=== PATIENT | female | born 1940 | race Caucasian/White ===

== ENCOUNTER → 2017-02-25 | Outpatient (CLI) | payer BC ==
[~2017-02-25] MED LIST: CHOL2000 PO; CLC100X PO; CYAN100020 PO; GEMF600T3 PO; LEVO50TA PO; LISI-787 PO; LISI20TA PO; LORA1TAB13 PO; SIMV20TA2 PO
[2017-02-25 10:28] LABS: URINE COLLECTION TIME 24 HOURS
[2017-02-25 10:29] LABS: CALCIUM URINE < 8.5 mg/dl
[2017-02-26 16:01] LABS: ALBUMIN 4.7 G/DL (3.8-4.8); TOTAL PROTEIN 7.8 G/DL (6.2-8.3)
== END | disposition home or self-care (01) ==
LOC: C.LAB1850 09:01
PROVIDERS: ATTEND Internal Medicine Rheumatology
DX: Z00.00 Encounter for general adult medical examination without abnormal findings (principal); M85.80 Other specified disorders of bone density and structure, unspecified site; E55.9 Vitamin D deficiency, unspecified; E61.8 Deficiency of other specified nutrient elements

== ENCOUNTER → 2017-04-05 | Outpatient (CLI) | payer BC ==
--- NOTE | 2017-04-05 15:48 | MAMMOGRAPHY REPORT ---
BILATERAL DIGITAL SCREENING MAMMOGRAM WITH CAD: 04/05/2017 CLINICAL HISTORY: Routine screening. Patient has no complaints. TECHNIQUE: Bilateral CC and MLO views were obtained. Current study was also evaluated with a Comput er Aided Detection (CAD) system. COMPARISON: Comparison is made to exams dated: 04/01/2016 mammogram, 03/27/2015 mammogram, 03/21/2014 m ammogram, 03/15/2013 mammogram, 03/09/2012 mammogram, and 03/04/2011 mammogram - [facility]. BREAST COMPOSITION: The tissue of both breasts is heterogeneously dense, which may obscure small ma sses. FINDINGS: There are diffuse bilateral benign rim and coarse calcifications in the breasts. No new suspicious mass, architectural distortion or cluster of microcalcifications is seen. IMPRESSION: ACR BI-RADS CATEGORY 1: NEGATIVE There is no mammographic evidence of malignancy. A 1 year screening mammogram is recommended. The p atient will receive written notification of the results. Approximately 10% of breast cancers are not detected with mammography. A negative mammographic repor t should not delay biopsy if a clinically suggestive mass is present. Joycelyn Patel M.D. ay/:04/05/2017 15:09:25 Farm [employer] Teacher: Sarah Faria, [facility] letter sent: Normal 1/2 BI-RADS Code: ACR BI-RADS Category 1: Negative
== END | disposition home or self-care (01) ==
LOC: C.MAMM 08:31
PROVIDERS: ATTEND Obstetrics & Gynecology
DX: Z12.31 Encounter for screening mammogram for malignant neoplasm of breast (principal)

== ENCOUNTER → 2017-07-06 | Outpatient (CLI) | payer BC ==
[~2017-07-06] MED LIST changes: -LISI-787 PO
== END | disposition home or self-care (01) ==
LOC: C.MAMM 10:20
PROVIDERS: ATTEND Internal Medicine Rheumatology
DX: M85.851 Other specified disorders of bone density and structure, right thigh (principal)

== ENCOUNTER → 2017-10-01 | Outpatient (CLI) | payer BC ==
[~2017-10-01] MED LIST changes: +LISI-787 PO
== END | disposition home or self-care (01) ==
LOC: C.LAB1850 07:31
PROVIDERS: ATTEND Internal Medicine
DX: E78.1 Pure hyperglyceridemia (principal)

== ENCOUNTER → 2017-10-11 | Day surgery (SDC) | payer BC ==
[2017-10-05 16:29] VITALS: Ht 149.9 cm; Wt 61.8 kg
[~2017-10-11] VITALS: Ht 149.9 cm; Wt 61.8 kg
[~2017-10-11] MED LIST changes: +500ML BSS 0.3ML EPI 1:1000PF IRRIG ONE; +ACETAMINOPHEN 325 MG TAB PO PRN; +AMVISC PLUS 0.8ML SYRINGE INT OCU ONE; +ATROPINE SULFATE 0.1 MG/ML 5ML SYR IV PRN; +BRIMONIDINE TART 0.2% OP SOLN PER DROP CHARGE ONE; +BSS FLUSH ONE; -CLC100X PO; +ENDOCOAT 0.85ML SYRINGE INT OCU ONE; +EpHEDrine SULFATE INJ 50 MG/ML AMP IV PRN; +EpINEphrine INJ 1MG/ML AMP 1 MG/ML AMP ONE; +LACTATED RINGER'S 1000ML 500 ML IV SCH; +LIDOCAINE 4% OP SOLN DROP CHARGE ONE; +LIDOCAINE 4% OP SOLN DROP CHARGE OPR SCH; +LIDOCAINE HCL 1% MPF 2 ML VIAL ONE; -LISI20TA PO; -LORA1TAB13 PO; +MIDAZOLAM HCL 1 MG/ML 2ML VIAL ONE; +MOXIFLOXACIN OPH SOLN PER DROP CHARGE ONE; +POVIDONE-IODINE OP SOLN 30 ML BTL ONE; +PROPARACAINE 0.5% OP SOLN PER DROP CHARGE OPR SCH; +TOBRAMYCIN/DEXAMETHASONE OPH OINT PER APPLN CHARGE ONE
[2017-10-11] MEDS: PHENYLEPHRINE HCL 2.5% OP SOLN PER DROP CHARGE OPR SCH ×2 (10:45→10:50)
[2017-10-11] MEDS: TROPICAMIDE 1% OP SOLN PER DROP CHARGE OPR SCH ×2 (10:46→10:51)
[2017-10-11] MEDS: CYCLOPENTOLATE HCL 1% OP SOLN PER DROP CHARGE OPR SCH ×2 (10:47→10:52)
[2017-10-11] MEDS: MOXIFLOXACIN OPH SOLN PER DROP CHARGE OPR SCH ×2 (10:48→10:58)
--- NOTE | 2017-10-11 11:21 | History & Physical Bridge - [place] ---
H&P Re-Evaluation Bridge Note: I have examined the patient, reviewed the History & Physical and in the interval since the performance of the History & Physical I have noted the following changes of clinical significance: No changes noted
--- NOTE | 2017-10-11 12:14 | Discharge Instructions-SurgCtr ---
Discharge Instructions Date of Service Oct 11, 2017. Visit Reason for Visit: Right Cataract Discharge Discharge Diagnosis / Problem: cataract right eye Discharge Goals Goal(s): Improve function Activity Recommendations Activity Limitations: per Instructions/Follow-up section Lifting Limitations: no more than 5 pounds Anesthesia . Post Anesthesia Instructions: If you have had General Anesthesia or IV Sedation: * Do not drive today. * Resume driving when surgeon permits. * Do not make important decisions or sign legal documents today. * Call surgeon for: 1. Temperature elevations greater than 101 degrees F. 2. Uncontrollable pain. 3. Excessive bleeding. 4. Persistent nausea and vomiting. 5. Medication intolerance (nausea, vomiting or rash). * For nausea and vomiting use only clear liquids such as: tea, soda, bouillon until nausea subsides, then gradually increase diet as tolerated. * If you have any concerns or questions, call your surgeon's office. If physician is unavailable and it is an emergency, call 911 or go to the nearest emergency room. . Instructions / Follow-Up Instructions / Follow-Up ACTIVITY RECOMMENDATIONS: * Light activities * You may walk outside, read, watch television. * Mild irritation and blurred vision are common for the first few days, redness around the white part of the eye is common. MEDICATIONS: Resume previous medications unless instructed otherwise by your surgeon. Eye drops (today and tomorrow): Polytrim - one drop in operative eye every 2 hours while awake Prednisolone 1% - one drop in operative eye every 2 hours while awake SPECIAL CARE INSTRUCTIONS: * If any problems or concerns, please call Dr. Magallanes's office at . * Keep plastic shield taped over eye to sleep at night. * Keep plastic shield taped over eye except to administer eye drops. * Keep plastic shield on until office visit the following day. FOLLOW UP VISIT: Follow-up with Dr. Magallanes in the [place] office as scheduled. If not already scheduled, please call the office at . Diet Recommendations Home Diet: resume previous diet Procedures Procedures Performed: Right Cataract Phacoemulsification With Intraocular Lens Implant Pending Studies Studies pending at discharge: no Medical Emergencies . Who to Call and When: Medical Emergencies: If at any time you feel your situation is an emergency, please call 911 immediately. . Non-Emergent Contact Non-Emergency issues call your: Private Advisor . . "Provider Documentation" section prepared by Silver Magallanes. .
--- NOTE | 2017-10-11 12:16 | [facility] Operative Report ---
Operative Report Operative Date Oct 11, 2017. Pre-Operative Diagnosis Right Eye Cataract Post-Operative Diagnosis Same Procedure(s) Performed Right Cataract Phacoemulsification With Intraocular Lens Implant Surgeon Dr Magallanes Section Gang Surgeon(s) None Estimated Blood Loss 0ml Findings cataract right eye Fluids (cc crystalloids) see anesthesia record Specimens None Drains none Anesthesia local with sedation Complication(s) None Disposition Recovery Room / PACU Implants mx60 24.5 Indications decreased vision right eye Description of Procedure After informed consent was obtained in the holding area the patient was wheeled back to the operating room where cardiac monitoring leads and oxygen by nasal cannula was administered by Anesthesia. Gentle IV sedation was given, and the patient's right eye was prepped and draped in usual sterile fashion. A wire lid speculum was placed into the right eye and the operating microscope was swung into position. Using 0.12 forceps and a Supersharp blade a paracentesis port was made 2 o'clock hours away from the 12 o'clock position of the patient's right eye. 1% non-preserved Lidocaine was then injected into the anterior chamber for anesthesia. A 2.0 mm keratotome blade was then used to make a shelved clear corneal incision at the 12 o'clock position of the right eye. Amvisc was injected into the anterior chamber and a cystotome and Utrata forceps were used to perform a curvilinear capsulorrhexis. BSS on a hydrodissection cannula was used to hydrodissect the lens nucleus away from the capsular bag. The phacoemulsification handpiece was then used in a stop and chop fashion to remove the lens nucleus. The irrigation and aspiration handpiece was then used to remove the residual cortical material. Amvisc was injected into the capsular bag and anterior chamber and a Bausch & Lomb MX60 24.5 Diopter intraocular lens was injected into the capsular bag. Irrigation and aspiration handpiece was used to remove the residual viscoelastic material. The wounds were hydrated and noted to be watertight. The wire lid speculum was removed from the eye. Vigamox, Brimonidine, and TobraDex ointment were placed on the eye and it was shielded. It should be noted that EndoCoat was used extensively during the case to protect the cornea endothelium. DISPOSITION: The patient tolerated the procedure well and was wheeled to the post anesthesia care unit in stable condition. I attest to the content of the Intraoperative Record and any orders documented therein. Any exceptions are noted below. I attest to the content of the Intraoperative Record and any orders documented therein. Any exceptions are noted below.
--- NOTE | 2017-10-11 12:36 | Anesthesia Progress Nt - [facility] ---
Anesthesia Post Op Note Date & Time Oct 11, 2017 at 12:36 Vital Signs Pain Intensity: 0 Vital Signs Past 12 Hours Date Time Temp Pulse Resp B/P (MAP) Pulse Ox O2 Delivery O2 Flow Rate FiO2 10/11/17 12:20 36.4 66 16 104/65 (78) 99 Room Air 10/11/17 10:39 36.7 76 16 130/78 (95) 97 Room Air Notes Mental Status: alert / awake / arousable, participated in evaluation Pt Amnestic to Procedure: Yes Nausea / Vomiting: adequately controlled Pain: adequately controlled Airway Patency, RR, SpO2: stable & adequate BP & HR: stable & adequate Hydration State: stable & adequate Anesthetic Complications: no major complications apparent
[2017-10-11 12:50] VITALS: BP 99/62; PULSE 66; TEMP 36.6; O2SAT 100
== END ==
LOC: X.SURG 10:04
PROVIDERS: ATTEND Ophthalmology
DX: H25.11 Age-related nuclear cataract, right eye (principal); E03.9 Hypothyroidism, unspecified; E78.00 Pure hypercholesterolemia, unspecified

== ENCOUNTER → 2017-11-17 | Day surgery (SDC) | payer BC ==
[2017-10-22 07:53] VITALS: Ht 149.9 cm; Wt 61.8 kg
[~2017-11-17] VITALS: Ht 149.9 cm; Wt 61.8 kg
[~2017-11-17] MED LIST changes: +FENTANYL CITRATE INJ 50 MCG/1 ML 2 ML VIAL IV PRN; +FLUMAZENIL 0.1 MG/1 ML 10 ML VIAL IV PRN; -GEMF600T3 PO; +GEMF600T5 PO; +HYDROmorphone INJ 2 MG/ML SYR/VIAL IV PRN; +LABETALOL HCL IV 5 MG/ML 20ML IV PRN; +LIDOCAINE 4% OP SOLN DROP CHARGE OPL SCH; -LIDOCAINE 4% OP SOLN DROP CHARGE OPR SCH; +MEPERIDINE HCL 25 MG/ML CARP IV PRN; +NALOXONE HCL 0.4 MG/1 ML VIAL/CARP IV PRN; +ONDANSETRON INJ 2 MG/ML 2 ML VIAL IV PRN; +PHENYLEPHRINE 100MCG/ML 5ML SYR IV PRN; +PROPARACAINE 0.5% OP SOLN PER DROP CHARGE OPL SCH; -PROPARACAINE 0.5% OP SOLN PER DROP CHARGE OPR SCH
[2017-11-17] MEDS: PHENYLEPHRINE HCL 2.5% OP SOLN PER DROP CHARGE OPL SCH ×2 (07:48→07:53)
[2017-11-17] MEDS: TROPICAMIDE 1% OP SOLN PER DROP CHARGE OPL SCH ×2 (07:49→07:54)
[2017-11-17] MEDS: CYCLOPENTOLATE HCL 1% OP SOLN PER DROP CHARGE OPL SCH ×2 (07:50→07:55)
[2017-11-17] MEDS: MOXIFLOXACIN OPH SOLN PER DROP CHARGE OPL SCH ×2 (07:51→08:02)
[2017-11-17] MEDS: KETOROLAC 0.5% OP SOLN PER DROP CHARGE OPL SCH ×2 (07:51→07:55)
--- NOTE | 2017-11-17 09:09 | Discharge Instructions-SurgCtr ---
Discharge Instructions Date of Service Nov 17, 2017. Visit Reason for Visit: Cataract Left Eye Discharge Discharge Diagnosis / Problem: cataract left eye Discharge Goals Goal(s): Improve function Activity Recommendations Activity Limitations: per Instructions/Follow-up section Lifting Limitations: no more than 5 pounds Anesthesia . Post Anesthesia Instructions: If you have had General Anesthesia or IV Sedation: * Do not drive today. * Resume driving when surgeon permits. * Do not make important decisions or sign legal documents today. * Call surgeon for: 1. Temperature elevations greater than 101 degrees F. 2. Uncontrollable pain. 3. Excessive bleeding. 4. Persistent nausea and vomiting. 5. Medication intolerance (nausea, vomiting or rash). * For nausea and vomiting use only clear liquids such as: tea, soda, bouillon until nausea subsides, then gradually increase diet as tolerated. * If you have any concerns or questions, call your surgeon's office. If physician is unavailable and it is an emergency, call 911 or go to the nearest emergency room. . Instructions / Follow-Up Instructions / Follow-Up ACTIVITY RECOMMENDATIONS: * Light activities * You may walk outside, read, watch television. * Mild irritation and blurred vision are common for the first few days, redness around the white part of the eye is common. MEDICATIONS: Resume previous medications unless instructed otherwise by your surgeon. Eye drops (today and tomorrow): Polytrim - one drop in operative eye every 2 hours while awake Prednisolone 1% - one drop in operative eye every 2 hours while awake SPECIAL CARE INSTRUCTIONS: * If any problems or concerns, please call Dr. Magallanes's office at . * Keep plastic shield taped over eye to sleep at night. * Keep plastic shield taped over eye except to administer eye drops. * Keep plastic shield on until office visit the following day. FOLLOW UP VISIT: Follow-up with Dr. Magallanes in the [place] office as scheduled. If not already scheduled, please call the office at . Diet Recommendations Home Diet: resume previous diet Procedures Procedures Performed: Left Cataract Phacoemulsification With Intraocular Lens Implant Pending Studies Studies pending at discharge: no Medical Emergencies . Who to Call and When: Medical Emergencies: If at any time you feel your situation is an emergency, please call 911 immediately. . Non-Emergent Contact Non-Emergency issues call your: Photo Optics Technician . . "Provider Documentation" section prepared by Silver Magallanes. .
[2017-11-17 09:10] VITALS: TEMP 36.4
--- NOTE | 2017-11-17 09:11 | [facility] Operative Report ---
Operative Report Operative Date Nov 17, 2017. Pre-Operative Diagnosis Cataract Left Eye Post-Operative Diagnosis Same Procedure(s) Performed Left Cataract Phacoemulsification With Intraocular Lens Implant Surgeon Dr. Magallanes Test Designer Surgeon(s) None Estimated Blood Loss 0 Findings cataract left eye Fluids (cc crystalloids) see anesthesia record Specimens None Drains none Anesthesia local with sedation Complication(s) None Disposition Recovery Room / PACU Implants mx60 25.0 Indications decreased vision left eye Description of Procedure After informed consent was obtained in the holding area the patient was wheeled back to the operating room where cardiac monitoring leads and oxygen by nasal cannula was administered by Anesthesia. Gentle IV sedation was given, and the patient's left eye was prepped and draped in usual sterile fashion. A wire lid speculum was placed into the left eye and the operating microscope was swung into position. Using 0.12 forceps and a Supersharp blade a paracentesis port was made 2 o'clock hours away from the 11 o'clock position of the patient's left eye. 1% non-preserved Lidocaine was then injected into the anterior chamber for anesthesia. A 2.0 mm keratotome blade was then used to make a shelved clear corneal incision at the 11 o'clock position of the left eye. Amvisc was injected into the anterior chamber and a cystotome and Utrata forceps were used to perform a curvilinear capsulorrhexis. BSS on a hydrodissection cannula was used to hydrodissect the lens nucleus away from the capsular bag. The phacoemulsification handpiece was then used in a stop and chop fashion to remove the lens nucleus. The irrigation and aspiration handpiece was then used to remove the residual cortical material. Amvisc was injected into the capsular bag and anterior chamber and a Bausch & Lomb MX60 25.0 Diopter intraocular lens was injected into the capsular bag. Irrigation and aspiration handpiece was used to remove the residual viscoelastic material. The wounds were hydrated and noted to be watertight. The wire lid speculum was removed from the eye. Vigamox, Brimonidine, and TobraDex ointment were placed on the eye and it was shielded. It should be noted that EndoCoat was used extensively during the case to protect the cornea endothelium. DISPOSITION: The patient tolerated the procedure well and was wheeled to the post anesthesia care unit in stable condition. I attest to the content of the Intraoperative Record and any orders documented therein. Any exceptions are noted below. I attest to the content of the Intraoperative Record and any orders documented therein. Any exceptions are noted below.
--- NOTE | 2017-11-17 09:21 | Anesthesia Progress Nt - [facility] ---
Anesthesia Post Op Note Date & Time Nov 17, 2017 at 09:21 Vital Signs Pain Intensity: 0 Vital Signs Past 12 Hours Date Time Temp Pulse Resp B/P (MAP) Pulse Ox O2 Delivery O2 Flow Rate FiO2 11/17/17 07:41 36.4 67 22 119/69 (86) 98 Room Air Notes Mental Status: alert / awake / arousable, participated in evaluation Pt Amnestic to Procedure: Yes Nausea / Vomiting: adequately controlled Pain: adequately controlled Airway Patency, RR, SpO2: stable & adequate BP & HR: stable & adequate Hydration State: stable & adequate Anesthetic Complications: no major complications apparent
[2017-11-17 09:36] VITALS: BP 120/63; PULSE 68; O2SAT 100
== END | disposition home or self-care (01) ==
LOC: X.SURG 07:34
PROVIDERS: ATTEND Ophthalmology
DX: H26.9 Unspecified cataract (principal); I10 Essential (primary) hypertension; Z79.899 Other long term (current) drug therapy; Z98.41 Cataract extraction status, right eye; Z98.890 Other specified postprocedural states

== ENCOUNTER → 2018-04-06 | Outpatient (CLI) | payer BC ==
[~2018-04-06] MED LIST changes: -500ML BSS 0.3ML EPI 1:1000PF IRRIG ONE; -ACETAMINOPHEN 325 MG TAB PO PRN; -AMVISC PLUS 0.8ML SYRINGE INT OCU ONE; -ATROPINE SULFATE 0.1 MG/ML 5ML SYR IV PRN; -BRIMONIDINE TART 0.2% OP SOLN PER DROP CHARGE ONE; -BSS FLUSH ONE; -ENDOCOAT 0.85ML SYRINGE INT OCU ONE; -EpHEDrine SULFATE INJ 50 MG/ML AMP IV PRN; -EpINEphrine INJ 1MG/ML AMP 1 MG/ML AMP ONE; -FENTANYL CITRATE INJ 50 MCG/1 ML 2 ML VIAL IV PRN; -FLUMAZENIL 0.1 MG/1 ML 10 ML VIAL IV PRN; +GEMF600T3 PO; -GEMF600T5 PO; -HYDROmorphone INJ 2 MG/ML SYR/VIAL IV PRN; -LABETALOL HCL IV 5 MG/ML 20ML IV PRN; -LACTATED RINGER'S 1000ML 500 ML IV SCH; -LIDOCAINE 4% OP SOLN DROP CHARGE ONE; -LIDOCAINE 4% OP SOLN DROP CHARGE OPL SCH; -LIDOCAINE HCL 1% MPF 2 ML VIAL ONE; -MEPERIDINE HCL 25 MG/ML CARP IV PRN; -MIDAZOLAM HCL 1 MG/ML 2ML VIAL ONE; -MOXIFLOXACIN OPH SOLN PER DROP CHARGE ONE; -NALOXONE HCL 0.4 MG/1 ML VIAL/CARP IV PRN; -ONDANSETRON INJ 2 MG/ML 2 ML VIAL IV PRN; -PHENYLEPHRINE 100MCG/ML 5ML SYR IV PRN; -POVIDONE-IODINE OP SOLN 30 ML BTL ONE; -PROPARACAINE 0.5% OP SOLN PER DROP CHARGE OPL SCH; -TOBRAMYCIN/DEXAMETHASONE OPH OINT PER APPLN CHARGE ONE
--- NOTE | 2018-04-06 15:24 | MAMMOGRAPHY REPORT ---
BILATERAL DIGITAL SCREENING MAMMOGRAM TOMOSYNTHESIS WITH CAD: 04/06/2018 CLINICAL HISTORY: Routine screening. Patient has no complaints. TECHNIQUE: Breast tomosynthesis in addition to standard 2D mammography was performed. Current study was also evaluated with a Computer Aided Detection (CAD) system. COMPARISON: Comparison is made to exams dated: 04/05/2017 mammogram, 04/01/2016 mammogram, 03/27/2015 ma mmogram, 03/21/2014 mammogram, 03/15/2013 mammogram, and 03/09/2012 mammogram - [facility]ter. BREAST COMPOSITION: The tissue of both breasts is heterogeneously dense, which may obscure small mas ses. FINDINGS: No suspicious masses, calcifications, or areas of architectural distortion are noted in ei ther breast. There has been no significant interval change compared to prior exams. Scattered bilater al benign-appearing calcifications are not significantly changed. Asymmetry in the right superior po sterior breast overlying the right pectoralis muscle is stable dating back to at least the 2009 exam. IMPRESSION: ACR BI-RADS CATEGORY 2: BENIGN There is no mammographic evidence of malignancy. A 1 year screening mammogram is recommended. The pa tient will receive written notification of the results. Approximately 10% of breast cancers are not detected with mammography. A negative mammographic report should not delay biopsy if a clinically suggestive mass is present. Zayra Cunningham M.D. /:04/06/2018 09:09:28 Computing Machine Operator: Rylie CARRERO)(Jim), [facility] letter sent: Normal 1/2 BI-RADS Code: ACR BI-RADS Category 2: Benign
== END | disposition home or self-care (01) ==
LOC: C.MAMM 08:34
PROVIDERS: ATTEND Obstetrics & Gynecology
DX: Z12.31 Encounter for screening mammogram for malignant neoplasm of breast (principal)

== ENCOUNTER → 2018-07-07 | Outpatient (CLI) | payer BC ==
[~2018-07-07] MED LIST changes: -GEMF600T3 PO; +GEMF600T5 PO
[2018-07-07 09:49] LABS: HEMATOCRIT 32.1 % (37-47); HEMOGLOBIN 11.2 g/dL (12.0-16.0); MEAN CELL VOLUME 87.5 fL (80-100); MEAN CORPUSCULAR HEMOGLOBIN 30.5 pg (25-34); MEAN CORPUSCULAR HGB CONC 34.9 g/dl (32-36); MEAN PLATELET VOLUME 10.4 fL (7.4-10.4); PLATELET COUNT 225 K/uL (130-400); RED CELL DISTRIBUTION WIDTH CV 14.6 % (11.5-14.5); RED CELL DISTRIBUTION WIDTH SD 46.5 fL (36.4-46.3); WHITE BLOOD COUNT 5.43 K/uL (4.8-10.8)
[2018-07-07 09:59] LABS: HEMOGLOBIN A1C 5.5 % (4.5-5.6)
[2018-07-07 10:03] LABS: ALT/SGPT 30 U/L (12-78); AST/SGOT 20 U/L (15-37); BLOOD UREA NITROGEN 32 mg/dl (7-18); CALCIUM 9.7 mg/dl (8.5-10.1); CARBON DIOXIDE 25 mmol/L (21-32); CHOLESTEROL 154 mg/dl (0-200); CREATININE 1.14 mg/dl (0.60-1.20); GLUCOSE 118 mg/dl (70-99); LDL CHOLESTEROL CALCULATED 69 mg/dl; POTASSIUM 3.8 mmol/L (3.5-5.1); SODIUM 139 mmol/L (136-145)
== END | disposition home or self-care (01) ==
LOC: C.LAB1850 06:58
PROVIDERS: ATTEND Internal Medicine
DX: E55.9 Vitamin D deficiency, unspecified (principal); R73.03 Prediabetes; E03.9 Hypothyroidism, unspecified; E78.1 Pure hyperglyceridemia; E78.00 Pure hypercholesterolemia, unspecified; D64.9 Anemia, unspecified

== ENCOUNTER 2019-10-04 10:52 | Inpatient (IN) ==
--- NOTE | 2019-09-08 13:41 | PAT Medication Instructions ---
Medication Instructions Date of Service September 08, 2019 Home Medications cholecalciferol (vitamin D3) 1,000 unit (25 mcg) tablet 2,000 units PO QAM cyanocobalamin (vit B-12) 1,000 mcg tablet 1,000 mcg PO QAM gemfibrozil 600 mg tablet 600 mg PO BID lisinopril 20 mg-hydrochlorothiazide 12.5 mg tablet 1 tab PO QAM simvastatin 20 mg tablet 20 mg PO QAM diclofenac 1 % topical gel 4 gm TOP QID PRN hydrocortisone 2.5 % rectal cream with applicator 2.5 % TOPICAL DAILY PRN levothyroxine 50 mcg PO QAM STOP taking 48 hours before surgery gemfibrozil 600 mg tablet 600 mg PO BID STOP taking 24 hours before surgery diclofenac 1 % topical gel 4 gm TOP QID PRN hydrocortisone 2.5 % rectal cream with applicator 2.5 % TOPICAL DAILY PRN DO NOT take the morning of surgery cholecalciferol (vitamin D3) 1,000 unit (25 mcg) tablet 2,000 units PO QAM cyanocobalamin (vit B-12) 1,000 mcg tablet 1,000 mcg PO QAM lisinopril 20 mg-hydrochlorothiazide 12.5 mg tablet 1 tab PO QAM Take morning of surgery With a small sip of water, OTHERWISE NOTHING TO EAT OR DRINK AFTER MIDNIGHT: simvastatin 20 mg tablet 20 mg PO QAM levothyroxine 50 mcg PO QAM Other Notes If you have any questions please call us at [phone] or [phone] or [phone] or [phone]
--- NOTE | 2019-09-11 08:43 | Anesthesiology Consultation ---
Date of Service September 11, 2019 Assessment & Plan (1) Encounter for pre-operative examination: - Awaiting review preop testing (labs, EKG, CXR). Chart Review Chart Review: Patient seen in Pre Admission Testing Teaching & Discussion Pre-Anesthesia Teaching/Discussion Notes: Instructed NPO after midnight before surgery,except medications with 15 cc of water. Medication instructions provided according to the PAT guidelines. History Surgery Operation Date: 10/04/19 10:25 Proposed Procedures p L2-L3 Decompression/Fusion, L3-S1 Hardware Removal, Spinal Cord Monitoring - Ian No, Height/Weight Height: 4 ft 11 in Weight: 64.4 kg Allergies Allergy/AdvReac Type Severity Reaction Status Date / Time aspirin Allergy Severe DYSPNEA Verified 09/11/19 08:39 Medications Home Medications Medication Instructions Recorded Confirmed Last Taken cholecalciferol (vitamin D3) 1,000 2,000 units PO QAM tab 06/21/19 08/31/19 Unknown unit (25 mcg) tablet cyanocobalamin (vit B-12) 1,000 1,000 mcg PO QAM tab 06/21/19 08/31/19 Unknown mcg tablet gemfibrozil 600 mg tablet 600 mg PO BID #180 tab 06/21/19 08/31/19 Unknown lisinopril 20 1 tab PO QAM #90 tab 06/21/19 08/31/19 Unknown mg-hydrochlorothiazide 12.5 mg tablet simvastatin 20 mg tablet 20 mg PO QAM tab 06/21/19 08/31/19 Unknown diclofenac 1 % topical gel 4 gm TOP QID PRN gm 07/04/19 08/31/19 Unknown hydrocortisone 2.5 % rectal cream 2.5 % TOPICAL DAILY PRN 07/04/19 08/31/19 Unknown with applicator levothyroxine 50 mcg PO QAM 08/31/19 08/31/19 Unknown Past Medical History Medical History GERD (gastroesophageal reflux disease) occasional Gout History of blood transfusion 2007 (post-op) History of pancreatitis 1997 Hyperlipidemia Hypertension Hypothyroidism Mesothelioma of peritoneum s/p surgery, chemo (2007) Osteopenia Exercise / Class Metabolic Activity II 4-5 Yardwork/Stairs/Walk up hill Past Family History Family History Father Cancer Mother Diverticulitis of colon Hypertension Pancreatitis Nephrolithiasis Sister Breast cancer Colon cancer Osteoarthritis Hypertension Brother Prostate cancer Son Migraine headache Past Surgical History Surgical History H/O abdominal surgery + heated chemo for mesothelioma H/O colonoscopy History of carpal tunnel surgery History of cataract surgery History of spinal fusion L3-S1 decompression/fusion: Grade 3 view, MAC#3, ETT 7.0 at [facility] History of total abdominal hysterectomy and bilateral salpingo-oophorectomy Hx of tonsillectomy Past Anesthesia History No Hx of Anesthesia Complications and No Family Hx of Anesthesia Complications History of PONV No Hx of PONV and No Hx of Motion Sickness Social History Smoking Status: Never smoker Do You Dip or Chew Tobacco: No Hx Alcohol Use: No Hx Substance Use: No substance use type: does not use Review of Systems Occasional reflux. Patient denies chest pain, shortness of breath, dyspnea on exertion, cough, wheezing, palpitations. Physical Exam Vital Signs VITALS BP 108/68 P 69 TEMP 98.0 SP02 96%RA RESP 16 PHYSICAL Mildly decreased cervical extension Full TMJ range of motion. TMD 3 finger breaths Mallampati Score 3 Dentition: intact, few crowns on sides Lungs: clear throughout to auscultation Cardiac: regular rate and rhythm, no murmurs noted Spine: normal Carotid arteries: negative bruit Extremities: no edema
--- NOTE | 2019-09-11 09:24 | XRay Report ---
XR chest Pre-admission PA/Lat CLINICAL HISTORY: pat preoperative evaluation COMPARISON STUDY: 09/27/2013 FINDINGS: The bones soft tissues and hemidiaphragms are normal. The cardiomediastinal silhouette is n ormal. The lungs are clear. The pulmonary vasculature is normal. IMPRESSION: Negative chest. The above report was generated using voice recognition software. It may contain grammatical, syntax or spelling errors. Electronically signed by: Juan Ibrahim M.D. 09/11/2019 9:22 AM
[2019-09-11 09:42] LABS: Basophils # (auto) 0.07 K/uL (0-0.2); Basophils % (auto) 1.2 %; Eosinophils # (auto) 0.15 K/uL (0-0.5); Eosinophils % (auto) 2.5 %; Hematocrit (blood only) 32.3 % (37-47); Hemoglobin 11.3 g/dL (12.0-16.0); Immature Granulocytes # (auto) 0.06 K/uL (0.00-0.02); Lymphocytes # (auto) 2.46 K/uL (1.2-3.4); Lymphocytes % (auto) 40.5 %; Mean Corpuscular Hemoglobin 30.4 pg (25-34); Mean Corpuscular Volume 86.8 fL (80-100); Mean Platelet Volume 9.8 fL (7.4-10.4); Monocytes # (auto) 0.43 K/uL (0.11-0.59); Monocytes % (auto) 7.1 %; Neutrophils % (auto) 47.7 %; Platelet Count 237 K/uL (130-400); RDW Coefficient of Variation 14.5 % (11.5-14.5); Red Blood Count 3.72 M/uL (4.2-5.4); White Blood Count 6.07 K/uL (4.8-10.8)
[2019-09-11 09:54] LABS: Partial Thromboplastin Ratio 0.9; Partial Thromboplastin Time 23.1 Seconds (21.0-31.0); Prothrombin Time 10.4 Seconds (9.0-12.0)
[2019-09-11 11:13] LABS: BUN Creatinine Ratio 23.2 (10-20); Calcium 10.1 mg/dl (8.5-10.1); Creatinine Clr Calc Pharmacy 25.8 ml/min; Est GFR (African American) 39.9; Est GFR (Non-African American) 34.5; Potassium 4.2 mmol/L (3.5-5.1)
[2019-09-11 12:40] LABS: Appearance Urine Clear (Clear); Bacteria Urine Automated Negative (Negative); Bilirubin Urine Negative (Negative); Blood Urine Trace (Negative); Cast Urine Automated 0 /lpf (0-5); Color Urine Orange; Glucose Urine UA Negative (Negative); Ketones Urine Negative (Negative); Leukocyte Esterase Urine Negative (Negative); Nitrite Urine Negative (Negative); Protein Urine 1+ (Negative); RBC Urine Automated 0-4 /hpf (0-4); Specific Gravity Urine 1.013 (1.000-1.030); Urobilinogen Urine Negative (Negative); pH Urine 5.5 (4.5-7.5)
[~2019-10-04 10:52] MED LIST changes: +ACETAMINOPHEN 500 MG TAB PO SCH; +CEFAZOLIN 1000MG 1,000 MG/7.5 ML SYR IV SCH; -CHOL2000 PO; -CYAN100020 PO; +CeleBREX 200 MG CAP PO SCH; +GABAPENTIN 300 MG CAP PO SCH; -GEMF600T5 PO; -LEVO50TA PO; -LISI-787 PO; -SIMV20TA2 PO; +SODIUM CHLORIDE 0.9% 1000ML IV SCH
[2019-10-04] MEDS ORDERED: ATROPINE SULFATE 0.1 MG/ML 10ML SYR IV PRN (12:42)
[2019-10-04] MEDS ORDERED: ONDANSETRON INJ 2 MG/ML 2 ML VIAL IV PRN ×2 (12:42→18:17)
[2019-10-04] MEDS ORDERED: HYDROmorphone INJ 1 MG/ML SYRINGE IV PRN ×2 (12:42→18:17)
[2019-10-04] MEDS ORDERED: LABETALOL HCL IV 5 MG/ML 20ML IV PRN (12:42)
--- NOTE | 2019-10-04 12:55 | History & Physical Bridge Note ---
Date of Service October 04, 2019 History & Physical Bridge Note I have examined the patient, reviewed the History & Physical and in the interval since the performance of the History & Physical I have noted the following changes of clinical significance: no changes noted
--- NOTE | 2019-10-04 12:57 | History & Physical Report ---
Date of Service October 04, 2019 Assessment & Plan (1) Neurogenic claudication due to lumbar spinal stenosis: Decompression fusion L2-L3 hardware removal L3-S1. Present on Admission?: Yes History of Present Illness Chief Complaint: Back and leg pain Primary Care Provider: Nash Malik MD This is a 79-year-old female well-known to me that presents with chronic persistent back and bilateral leg pain. After failing extensive course of nonoperative care is here for surgical intervention. Allergies Allergy/AdvReac Type Severity Reaction Status Date / Time aspirin Allergy Severe DYSPNEA Verified 10/04/19 11:18 Home Medications Home Medications Medication Instructions Recorded Confirmed Type cholecalciferol (vitamin D3) 25 2,000 units PO QAM tab 06/21/19 10/04/19 History mcg (1,000 unit) tablet cyanocobalamin (vitamin B-12) 1,000 mcg PO QAM tab 06/21/19 10/04/19 History 1,000 mcg tablet gemfibrozil 600 mg tablet 600 mg PO BID #180 tab 06/21/19 10/04/19 History lisinopril 20 1 tab PO QAM #90 tab 06/21/19 10/04/19 History mg-hydrochlorothiazide 12.5 mg tablet simvastatin 20 mg tablet 20 mg PO QPM tab 06/21/19 10/04/19 History diclofenac sodium 1 % topical gel 4 gm TOP QID PRN gm 07/04/19 10/04/19 History hydrocortisone 2.5 % rectal cream 2.5 % TOPICAL DAILY PRN 07/04/19 10/04/19 History with applicator levothyroxine 50 mcg PO QAM 08/31/19 10/04/19 History Past Med/Surg History Family History Father Cancer Mother Diverticulitis of colon Hypertension Pancreatitis Nephrolithiasis Sister Breast cancer Colon cancer Osteoarthritis Hypertension Brother Prostate cancer Son Migraine headache Social History Preferred Language: Romanian Communication Ability: Effective Beliefs That Will Affect Care: Buddhist Buddhist Beliefs: shinto marital status: Current Living Situation: Spouse current occupational status: retired Other Information That Helps Us Care for You: No Feels Safe at Home: Yes Safety Concerns: Feels Safe At This Time Smoking Status: Never smoker Do You Dip or Chew Tobacco: No ; Second Hand Exposure: No ; Hx Alcohol Use: No Hx Substance Use: No Seatbelt Use: always Physical Exam Physical Exam: Patient is alert and oriented neurologically intact. Results & Data Vital Signs (Past 12 Hours) Vital Signs Temp Pulse Resp BP Pulse Ox 10/04/19 11:27 36.5 C 78 18 156/81 H 99
[2019-10-04] MEDS ORDERED: BUPIVACAINE 0.5 % 5 MG/1 ML MPF 30ML VIAL ONE (13:03)
[2019-10-04] MEDS ORDERED: EPINEPHrine INJ 1 MG/ML AMP ONE (13:03)
[2019-10-04] MEDS ORDERED: BACITRACIN INJ 50,000 UNIT VIAL ONE (13:03)
[2019-10-04] MEDS ORDERED: MIDAZOLAM HCL 1 MG/ML 2ML VIAL ONE (13:10)
[2019-10-04] MEDS ORDERED: fentaNYL citrate 100 MCG/2 ML VIAL ONE ×2 (13:10→13:41)
[2019-10-04] MEDS ORDERED: HYDROmorphone INJ 2 MG/ML SYR/VIAL ONE (13:14)
[2019-10-04] MEDS ORDERED: GLYCOPYRROLATE 0.2 MG/ML VIAL ONE (14:09)
[2019-10-04] MEDS ORDERED: PHENYLEPHRINE HCL 10 MG/ML VIAL ONE (14:09)
[2019-10-04] MEDS ORDERED: LIDOCAINE HCL 2% 2 ML VIAL/AMP(20MG/ML) INFIL ONE (14:09)
[2019-10-04] MEDS ORDERED: NEOSTIGMINE METHYLSULFATE 1 MG/ML 10ML VIAL ONE (14:09)
[2019-10-04] MEDS ORDERED: ePHEDrine sulfate 50 MG/ML SYR ONE (14:09)
[2019-10-04] MEDS ORDERED: ONDANSETRON INJ 2 MG/ML 2 ML VIAL ONE (14:09)
[2019-10-04] MEDS ORDERED: ROCURONIUM BROMIDE 10 MG/ML 5 ML VIAL ONE (14:09)
[2019-10-04] MEDS ORDERED: PROPOFOL IV EMULSION 10 MG/ML 20 ML VIAL IV ONE (14:09)
[2019-10-04] MEDS ORDERED: DEXAMETHASONE SOD INJ 4 MG/ML VIAL ONE (14:09)
[2019-10-04] MEDS ORDERED: FLOSEAL HEMOSTATIC MATRIX 10ML TOP ONE (15:32)
--- NOTE | 2019-10-04 15:43 | Fluoroscopy Report ---
LUMBAR SPINE, INTRAOPERATIVE FLUOROSCOPY HISTORY: L3-S1 hardware removal with L2-L3 decompression and fusion. FLUOROSCOPY TIME: 8 seconds. FINDINGS: Intraoperative fluoroscopy was provided for the lumbar spine. 2 fluoroscopic spot images we re obtained. Posterior decompression fusion from L2 through L4 the pedicles screws and rods. The hard oliver appears intact. There is also a single residual pedicle screw within at L5. IMPRESSION: Fluoroscopy provided for a L2-L4 posterior decompression and fusion. Electronically signed by: Titus Ovalles M.D. 10/04/2019 3:42 PM
--- NOTE | 2019-10-04 15:44 | Operative Report ---
Post Operative Report Pre & Post Diagnosis Operation Date: 10/04/19 12:35 Pre-Op Diagnosis: Neurogenic claudication due to lumbar spinal stenosis Post-Op Diagnosis: Neurogenic claudication due to lumbar spinal stenosis I identified the patient and participated in the time-out.: Yes Procedure Operation Date: 10/04/19 12:35 Actual Procedures #1 removal of posterior segmental instrumentation L3-4 L4-5 L5-S1. #2 exploration fusion L3-4 L4-5 L5-S1. #3 lumbar decompression with bilateral medial facetectomies and foraminotomies L1-L2 3. #4 posterior spinal fusion L2- 3. #5 placed posterior instrumentation L2-3 L3-4. #6 interbody fusion L2-3. #7 placement of peek cage 10 x 22 mm at L2-3. #8 placement of locally harvested morselized autograft in the posterior lateral gutters per #9 placement infuse collagen sponge bone mass graft in the posterior lateral gutters and ostial amp and interbody space. Surgeon Ian No, DO Mixing Machine Tender Cork Rod None Estimated Blood Loss 250 Findings Consistent with Post-Op Diagnosis Specimens None Indications This is a nice 79-year-old female well-known to me that presents with above-mentioned diagnosis after failing a course of nonoperative care she elected to go the above-mentioned procedure. Description of Procedure Patient was met with identified and informed consent obtained. Patient was then taken to the operative suite underwent intubation placed in a prone position the Jay table on top of the Gil frame. All bony prominences well-padded eyes inspected to ensure no external pressure placed upon the peer at this point the lumbar spine was prepped and draped in a normal sterile fashion. Sharp dissection with the assistance of Bovie cautery was performed down to and exposing the lamina and transverse processes of L2 and instrumentation at L3-L4-L5 and S1 levels bilaterally. Then proceed remove the hardware bilater ally explore the fusion mass noting it to be intact. I did leave the right L5 pedicle screw in place as it was completely ensconced in bone and removing it would have created excess bleeding. I then performed a complete laminectomy of L2 partial laminectomy of L1 including bilateral medial facetectomies and foraminotomies addressing severe stenosis. Pedicle screws were then placed in L2-L3-L4 bilaterally with assistance of fluoroscopy and appropriate size jose alejandro placed. By way of a transforaminal approach and left complete discectomy was performed endplates curetted to subcortical bleeding bone and a 10 x 22 mm peek cage filled with osteo-amp bone graft tapped in position. The rods were then locked in final position bilaterally. The transverse processes of L2-L3-L4 burred to subcortical bleeding bone. Infuse collagen sponge master graft and local autograft placed in the posterior lateral gutters. 15 round KAREN drain inserted. The incision was then closed with 1 Vicryl in the fascia 2-0 Vicryl substantially and 4-0 Monocryl for final skin closure. Steri-Strips dressings placed. Patient will continue PACU stable disc. Please note spinal cord monitoring was utilized that the procedure no changes noted. I attest to the content of the Intraoperative Record and any orders documented therein. Any exceptions are noted below.
[2019-10-04] MEDS ORDERED: METOPROLOL TARTRATE 1 MG/ML VIAL IV ONE (16:05)
[2019-10-04] MEDS ORDERED: METOPROLOL TARTRATE 1 MG/ML VIAL IV STA (16:05)
[2019-10-04] MEDS ORDERED: PROMETHAZINE HCL 12.5 MG in SODIUM CHLORIDE 0.9% 50 ML IV STA (16:36)
--- NOTE | 2019-10-04 17:27 | Anesthesiology Progress Note ---
Date of Service October 04, 2019 Anesthesia Post Procedure Vital Signs Vital Signs: Temp Pulse Pulse Pulse Resp BP BP 10/04/19 17:20 74 19 135/70 10/04/19 17:10 36.5 C 73 17 133/80 10/04/19 17:00 71 15 137/69 10/04/19 16:50 72 17 128/60 10/04/19 16:40 84 18 183/79 H 10/04/19 16:30 79 17 168/80 H 10/04/19 16:20 83 15 189/93 H 10/04/19 16:10 89 21 166/88 H 10/04/19 16:07 108 H 177/89 H 10/04/19 16:00 111 H 20 189/95 H 10/04/19 15:50 36.5 C 108 H 19 167/76 H 10/04/19 11:27 36.5 C 78 18 156/81 H Pulse Ox 10/04/19 17:20 99 10/04/19 17:10 97 10/04/19 17:00 95 10/04/19 16:50 98 10/04/19 16:40 99 10/04/19 16:30 99 10/04/19 16:20 99 10/04/19 16:10 99 10/04/19 16:07 10/04/19 16:00 98 10/04/19 15:50 98 10/04/19 11:27 99 Pain Intensity Lower Medial Back: Pain Intensity: 2 Back: Pain Intensity: 0 Transfer of Care Handoff Completed per policy Notes Mental Status: alert / awake / arousable Patient Amnestic to Procedure: Yes Nausea / Vomiting: adequately controlled Pain: adequately controlled Airway Patency, RR, SpO2: stable & adequate BP & HR: stable & adequate Hydration State: stable & adequate Anesthetic Complications: no major complications apparent and Pt Satisfied with anesthetic care
[2019-10-04] MEDS ORDERED: NALOXONE HCL 0.4 MG/1 ML VIAL/CARP IV PRN (18:17)
[2019-10-04] MEDS ORDERED: ACETAMINOPHEN 1,000 MG/100 ML VIAL IV PRN (18:17)
[2019-10-04] MEDS ORDERED: OXYCODONE HCL IR 5 MG TAB (IMMEDIATE RELEASE) PO PRN (18:17)
[2019-10-04] MEDS ORDERED: LORazepam 0.5 MG/1 ML VIAL IV PRN (18:17)
[2019-10-04] MEDS ORDERED: LORazepam 0.5 MG TAB PO PRN (18:17)
[2019-10-04] MEDS ORDERED: SOD PHOSPHATE/SOD BIPHOSPHATE ENEMA 132 ML BTL PR PRN (18:17)
[2019-10-04] MEDS ORDERED: DO NOT ADMINISTER PNEUMOCOCCAL VACCINE PRN (18:17)
[2019-10-04] MEDS ORDERED: DO NOT ADMINISTER FLU VACCINE PRN (18:17)
[2019-10-04] MEDS ORDERED: FAMOTIDINE 20 MG TAB PO PRN (18:17)
[2019-10-04] MEDS ORDERED: ALUMINUM/MAGNESIUM SUSP 30 ML UDC PO PRN (18:17)
[2019-10-04] MEDS ORDERED: MAGNESIUM HYDROXIDE SUSP 30 ML UDC PO PRN (18:17)
[2019-10-04] MEDS ORDERED: BISACODYL 10 MG SUPP PR PRN (18:17)
[2019-10-04] MEDS ORDERED: ONDANSETRON 4 MG OD TAB PO PRN (18:17)
[2019-10-04] MEDS ORDERED: PROMETHAZINE HCL 12.5 MG in SODIUM CHLORIDE 0.9% 50 ML IV PRN (18:17)
[2019-10-04] MEDS ORDERED: HYDROmorphone INJ 0.5 MG/0.5 ML SYR IV PRN (18:17)
[2019-10-04] MEDS ORDERED: TRAMADOL HCL 50 MG TABLET PO PRN (18:17)
[2019-10-04] MEDS ORDERED: METOCLOPRAMIDE HCL INJ 5 MG/ML 2 ML VIAL IV PRN (18:17)
[2019-10-04] MEDS: SIMVASTATIN 20 MG TAB PO SCH (21:04)
[2019-10-04] MEDS: GEMFIBROZIL 600 MG TAB PO SCH (21:04)
[2019-10-04] MEDS: DOCUSATE SODIUM/SENNA 50/8.6MG TAB PO SCH (21:04)
[2019-10-04] MEDS: SODIUM CHLORIDE 0.9% 1000ML 1,000 ML IV SCH (21:05)
[2019-10-04] MEDS: CEFAZOLIN 1000MG 1,000 MG/7.5 ML SYR IV SCH (21:28)
[2019-10-05] MEDS: CEFAZOLIN 1000MG 1,000 MG/7.5 ML SYR IV SCH (05:46)
[2019-10-05] MEDS: LEVOTHYROXINE SODIUM 50 MCG TABLET PO SCH (05:46)
[2019-10-05 05:47] LABS: Basophils # (auto) 0.01 K/uL (0-0.2); Basophils % (auto) 0.1 %; Hematocrit (blood only) 24.9 % (37-47); Hemoglobin 8.8 g/dL (12.0-16.0); Immature Granulocytes # (auto) 0.05 K/uL (0.00-0.02); Immature Granulocytes % (auto) 0.6 %; Lymphocytes # (auto) 1.09 K/uL (1.2-3.4); Mean Corpuscular Hemoglobin 30.9 pg (25-34); Mean Corpuscular Hgb Conc 35.3 g/dL (32-36); Mean Corpuscular Volume 87.4 fL (80-100); Mean Platelet Volume 9.7 fL (7.4-10.4); Monocytes # (auto) 0.45 K/uL (0.11-0.59); Neutrophils # (auto) 7.47 K/uL (1.4-6.5); Neutrophils % (auto) 82.3 %; Platelet Count 200 K/uL (130-400); RDW Coefficient of Variation 14.4 % (11.5-14.5); RDW Standard Deviation 46.2 fL (36.4-46.3); Red Blood Count 2.85 M/uL (4.2-5.4); White Blood Count 9.07 K/uL (4.8-10.8)
[2019-10-05] MEDS: POLYETHYLENE (MIRALAX) 17 GM PACK PO SCH ×4 (05:47→23:11)
[2019-10-05] MEDS: SODIUM CHLORIDE 0.9% 1000ML 1,000 ML IV SCH (06:07)
[2019-10-05 06:23] LABS: BUN Creatinine Ratio 21.5 (10-20); Calcium 9.2 mg/dl (8.5-10.1); Creatinine Clr Calc Pharmacy 34.6 ml/min; Est GFR (African American) 57.2; Est GFR (Non-African American) 49.3; Potassium 4.3 mmol/L (3.5-5.1)
--- NOTE | 2019-10-05 08:14 | Anesthesiology Progress Note ---
Date of Service October 05, 2019 Anesthesia Post Procedure Vital Signs Vital Signs: Temp Pulse Pulse Pulse Resp BP BP 10/05/19 07:24 36.8 C 83 16 121/70 10/05/19 03:38 36.5 C 84 16 107/64 10/04/19 22:57 36.6 C 87 18 103/62 10/04/19 21:02 36.5 C 89 20 158/87 H 10/04/19 19:57 36.4 C L 77 16 120/70 10/04/19 19:02 36.4 C L 80 16 128/70 10/04/19 18:35 36.3 C L 79 16 129/73 10/04/19 18:00 36.5 C 77 16 126/69 10/04/19 17:50 81 19 141/71 H 10/04/19 17:45 78 14 141/71 H 10/04/19 17:40 76 17 135/71 10/04/19 17:35 78 19 132/70 10/04/19 17:30 75 16 122/74 10/04/19 17:20 74 19 135/70 10/04/19 17:10 36.5 C 73 17 133/80 10/04/19 17:00 71 15 137/69 10/04/19 16:50 72 17 128/60 10/04/19 16:40 84 18 183/79 H 10/04/19 16:30 79 17 168/80 H 10/04/19 16:20 83 15 189/93 H 10/04/19 16:10 89 21 166/88 H 10/04/19 16:07 108 H 177/89 H 10/04/19 16:00 111 H 20 189/95 H 10/04/19 15:50 36.5 C 108 H 19 167/76 H 10/04/19 11:27 36.5 C 78 18 156/81 H Pulse Ox 10/05/19 07:24 97 10/05/19 03:38 97 10/04/19 22:57 96 10/04/19 21:02 97 10/04/19 19:57 100 10/04/19 19:02 100 10/04/19 18:35 100 10/04/19 18:00 98 10/04/19 17:50 100 10/04/19 17:45 100 10/04/19 17:40 99 11/13/19 17:35 100 10/04/19 17:30 93 10/04/19 17:20 99 10/04/19 17:10 97 10/04/19 17:00 95 10/04/19 16:50 98 10/04/19 16:40 99 10/04/19 16:30 99 10/04/19 16:20 99 10/04/19 16:10 99 10/04/19 16:07 10/04/19 16:00 98 10/04/19 15:50 98 10/04/19 11:27 99 Pain Intensity Lower Medial Back: Pain Intensity: 2 Back: Pain Intensity: 0 Notes Mental Status: alert / awake / arousable and participated in evaluation Patient Amnestic to Procedure: Yes Nausea / Vomiting: adequately controlled Pain: adequately controlled Airway Patency, RR, SpO2: stable & adequate BP & HR: stable & adequate Hydration State: stable & adequate Anesthetic Complications: no major complications apparent and Pt Satisfied with anesthetic care
[2019-10-05] MEDS: ACETAMINOPHEN 500 MG TAB PO PRN ×2 (08:23→16:35)
--- NOTE | 2019-10-05 08:32 | Orthopedic Progress Note ---
Date of Service October 05, 2019 Assessment & Plan (1) Spinal stenosis: This time initiate physical therapy monitor her KAREN output hopefully discharge home the next day or so. Present on Admission?: Yes Subjective Patient's back pain is controlled leg symptoms markedly improved. Physical Exam Physical Exam: Patient is good strength testing appears comfortable. Results & Data Vital Signs (Past 12 Hours) Vital Signs Temp Pulse Resp BP Pulse Ox 10/05/19 07:24 36.8 C 83 16 121/70 97 10/05/19 03:38 36.5 C 84 16 107/64 97 10/04/19 22:57 36.6 C 87 18 103/62 96 10/04/19 21:02 36.5 C 89 20 158/87 H 97
[2019-10-05] MEDS: LISINOPRIL/HCTZ 20/12.5MG 1 TAB TAB PO SCH (08:56)
[2019-10-05] MEDS: CYANOCOBALAMIN 500 MCG TABLET (VITAMIN B-12) PO SCH (08:56)
[2019-10-05] MEDS: GEMFIBROZIL 600 MG TAB PO SCH ×2 (08:56→20:24)
[2019-10-05] MEDS: CHOLECALCIFEROL 1,000 UNITS TAB PO SCH (08:57)
--- NOTE | 2019-10-05 12:58 | Consultation ---
Date of Consultation October 05, 2019 Assessment & Plan (1) Postoperative state: s/p decompression and fusion with Dr. No 10/04 Pain management, dvt proph, PT/OT per primary (2) Hypothyroidism: continue levothyroxine (3) Hypertension: continue home lisinopril-hctz (4) Hyperlipidemia: continue home gemfibrozil and simvastatin (5) Acute blood loss anemia: Hgb 8.8 down from 11.3 following surgery Monitor Thank you for involving us in the care of this patient, please let us know if you have any questions. Medicine will sign off at this time. Supervising Physician Co-Signing Physician Notes I supervised Flor Cope NP on this patient's care. I examined the patient today independently of her. I discussed the plan of care with her with the plan being as written in her note except for any following changes/exceptions: None. Doing well. No pain. Awake and alert. Doing well. History of Present Illness Ms. English is feeling well. First day post op. Sitting up with bedside. No complaints. Pmhx: hypothyroid, CKD, htn, hld, cough Social: lives with , retired thermal engineer, non smoker, no alcohol Family history: no significant that patient is aware of Attending Physician: Ian No, DO Allergies Allergy/AdvReac Type Severity Reaction Status Date / Time aspirin Allergy Severe DYSPNEA Verified 10/04/19 11:18 Home Medications Home Medications Medication Instructions Recorded Confirmed Type cholecalciferol (vitamin D3) 25 2,000 units PO QAM tab 06/21/19 10/04/19 History mcg (1,000 unit) tablet cyanocobalamin (vitamin B-12) 1,000 mcg PO QAM tab 06/21/19 10/04/19 History 1,000 mcg tablet gemfibrozil 600 mg tablet 600 mg PO BID #180 tab 06/21/19 10/04/19 History lisinopril 20 1 tab PO QAM #90 tab 06/21/19 10/04/19 History mg-hydrochlorothiazide 12.5 mg tablet simvastatin 20 mg tablet 20 mg PO QPM tab 06/21/19 10/04/19 History diclofenac sodium 1 % topical gel 4 gm TOP QID PRN gm 07/04/19 10/04/19 History hydrocortisone 2.5 % rectal cream 2.5 % TOPICAL DAILY PRN 07/04/19 10/04/19 History with applicator levothyroxine 50 mcg PO QAM 08/31/19 10/04/19 History tramadol 50 mg PO Q6H PRN #30 tab 10/05/19 Rx Patient History Family History Father Cancer Mother Diverticulitis of colon Hypertension Pancreatitis Nephrolithiasis Sister Breast cancer Colon cancer Osteoarthritis Hypertension Brother Prostate cancer Son Migraine headache Social History Preferred Language: Icelandic Communication Ability: Effective Beliefs That Will Affect Care: Mosque Mosque Beliefs: methodist marital status: Current Living Situation: Spouse current occupational status: retired Other Information That Helps Us Care for You: No Feels Safe at Home: Yes Safety Concerns: Feels Safe At This Time Smoking Status: Never smoker Do You Dip or Chew Tobacco: No ; Second Hand Exposure: No ; Hx Alcohol Use: No Hx Substance Use: No Seatbelt Use: always Review of Systems Constitutional: no fever and no chills Respiratory: no cough, no chest congestion and no dyspnea Cardiovascular: no chest pain, no chest pain at rest and no dyspnea Gastrointestinal: no abdominal pain, no nausea and no vomiting Genitourinary: no dysuria and no urinary urgency Musculoskeletal: no back pain and no radicular pain Neurologic: no confusion Physical Exam Physical Exam: General: no distress Eyes: normal inspection, PERLL Respiratory: chest non tender, clear to auscultation, normal breath sounds, no respiratory distress, no accessory muscle use Cardiac: regular rate and rhythm, no rub or gallop, no murmur, no edema, no jvd GI/: active bowel sounds, no abd pain or tenderness, soft, non distended Extremities: normal range of motion, normal strength, non tender Neuro:oriented x 3, moves all extremities Psych: alert, normal mood and affect Skin: normal color, dry Results & Data Vital Signs (Past 12 Hours) Vital Signs Temp Pulse Resp BP Pulse Ox 10/05/19 07:24 36.8 C 83 16 121/70 97 10/05/19 03:38 36.5 C 84 16 107/64 97 PG Care Time/CCT Total # of Minutes Spent Total Time Spent with Patient: Total time spent is greater than 50% in coordination of care (as documented) at patient's floor/unit and/or counseling patient:
[2019-10-05] MEDS: DOCUSATE SODIUM/SENNA 50/8.6MG TAB PO SCH (20:23)
[2019-10-05] MEDS: SIMVASTATIN 20 MG TAB PO SCH (20:24)
[2019-10-06] MEDS: ACETAMINOPHEN 500 MG TAB PO PRN ×2 (00:23→09:01)
[2019-10-06] MEDS: LEVOTHYROXINE SODIUM 50 MCG TABLET PO SCH (06:03)
[2019-10-06] MEDS: POLYETHYLENE (MIRALAX) 17 GM PACK PO SCH (06:03)
[2019-10-06] MEDS: CYANOCOBALAMIN 500 MCG TABLET (VITAMIN B-12) PO SCH (09:02)
[2019-10-06] MEDS: LISINOPRIL/HCTZ 20/12.5MG 1 TAB TAB PO SCH (09:02)
[2019-10-06] MEDS: GEMFIBROZIL 600 MG TAB PO SCH (09:02)
[2019-10-06] MEDS: CHOLECALCIFEROL 1,000 UNITS TAB PO SCH (09:03)
--- NOTE | 2019-10-06 11:06 | Discharge Summary ---
Date of Service October 06, 2019 Admission HPI Per Admitting Provider This is a 79-year-old female well-known to me that presents with chronic persistent back and bilateral leg pain. After failing extensive course of nonoperative care is here for surgical intervention. Principal Diagnosis Lumbar spinal stenosis with neurogenic claudication Discharge Data Allergies Allergy/AdvReac Type Severity Reaction Status Date / Time aspirin Allergy Severe DYSPNEA Verified 10/04/19 11:18 Consultations 10/04/19 18:17 Consult Case Management - Discharge Planning Routine Consult Hospitalist Routine Procedures Performed Operation Date: 10/04/19 12:35 Actual Procedures p L2-L4 Decompression and Fusion, with Spinal Cord Monitoring, application of Bone Morphogenetic Protein, Placement of Interbody at L2-L3(Not Applicable) - Ian No DO s L3-S1 Hardware Removal(Not Applicable) - Ian No DO Ordered Studies 10/04/19 12:35 FL fluoroscopy <1hr Routine FL lumbar spine 2-3V Routine Hospital Course (1) Neurogenic claudication due to lumbar spinal stenosis: Patient underwent lumbar decompression fusion tolerated as well as taken orthopedic for postoperative postop day and when she was up and ambulating leg symptoms improved. Postop day #2 she continued to progress appropriately. Neurologically intact. Subsequently she was discharged home with home health to manage her KAREN drain. Discharge orders instructions can be found the chart for further review. Total Time Total Time Spent Total Time Spent (In Minutes): 20 minutes Discharge Plan Discharge Items Patient Disposition: Home - Home Health Services Reason For Visit: Low Back Pain Discharge Diagnosis: Lumbar spinal stenosis with neurogenic claudication Activity: Per Instructions section Non-emergency contact: Primary Care Provider Call non-emergency contact if: you have any medication questions Follow-up/Referrals: ProNash MD [Primary Care Provider] - Diet: Regular Addtl Attending Provider Instructions: ACTIVITY RECOMMENDATIONS: SELF CARE INSTRUCTIONS AFTER THORACIC/LUMBAR FUSIONS 1. You may walk to your tolerance. It is good exercise for your legs and back. Expect some back and intermittent leg aches and pains. 2. You may perform "counter-top" level activities (make a sandwich, srinivas with a project, etc.). 3. No bending or lifting of more than 10 pounds or back twisting of any nature (roll like a log when turning in bed). 4. You may ride in a car for 20-30 minutes at a time. No driving until after your first visit with your doctor. 5. Frequent changes of position and restricting sitting to 30 minutes at a time will help limit the amount of back spasms and stiffness you may experience. 6. You may discontinue the use of ambulatory aids (cane, crutches, etc.) once your strength and confidence allow. 7. You may welding machine operator electroslag the shower and let water strike your incision when you arrive home at least once daily. Do not take a tub bath, sit in a hot tub or go into a swimming pool until after your first recheck in the office. SPECIAL CARE INSTRUCTIONS: VERY IMPORTANT TO READ AND REVIEW A. Your surgical incision has been closed with a cosmetic suture under the skin that will dissolve in about 6 weeks. In 14 days, you can use a pair of clean scissors and cut the suture that is left outside of the skin at the ends of your incision. 1. The small skin tapes can be removed 7 days after surgery if they have not fallen off by that point. 2. You may keep the wound open to air as much as possible to promote healing after post-op day number 5 unless told otherwise by your doctor. 3. If you think the wound looks like it is becoming infected (redness or worsening drainage) and/or you are experiencing fever, chill or worsening back pain and muscle spasms, contact the office so that we may evaluate you as soon as possible. B. Complications are uncommon, but please contact us if you have any signs or symptoms of: 1. wound infection (fever higher than 102.5 degrees F, redness, separation of wound, drainage, or increasing pain from the incision) 2. blood clots in legs (pain, swelling, redness and warmth in legs) 3. urinary tract infection (fever higher than 102.5 degrees F, burning upon urination or increased frequency of urination) 4. nerve problems (inability to walk on your toes or heels, numbness, loss of bowel or bladder control) 5. any other symptoms that concern you C. Please call the office at if you have any concerns or questions about your operation or recovery. D. No smoking! Smoking drastically decreases the chance of a solid fusion. E. Do not take any anti-inflammatory medications (Indocin, Advil, Motrin, Aspirin, Naprosyn, etc.) as these may inhibit the chance of a solid fusion. Tylenol is okay to take for pain. MANAGING PAIN AFTER SPINAL SURGERY 1. Narcotic medication is intended for short-term use and will be provided for surgical pain. Surgical pain usually lasts for a period of 4-6 weeks. Narcotic medication includes Percocet, Vicodin, Darvocet, Tylenol #3 or Lortab. 2. Longer-term pain is more appropriately treated with non-narcotic medication such as Tylenol ES. 3. Muscle spasm is not appropriately treated with narcotics. Muscle relaxers such as Soma, Flexeril or Skelaxin can be used along with Tylenol ES. 4. Remember that we all live with some "aches and pains". This is not unusual or uncommon after an injury or as we get older. a. Back pain is expected and may include muscle spasms for 4 to 6 weeks after surgery. The pain should gradually improve. If the pain worsens for no apparent reason, please contact the office. b. Intermittent leg pain may also be experienced and should not be concerned about unless it worsens for no apparent reason. If so, please contact the office. 5. We will provide appropriate medication within the normal guidelines of their prescribed use. We will also be very cautious and aware of potential abuse and extended duration of patients' medication needs. a. Pain medications are for your comfort and to assist with sleep and rest so that the tissue can heal. They are not provided in order to return to normal activity and should not be used through the day. To do so or worsening pain at night can result from ongoing tissue damage and de velopment of tolerance to the prescribed medicine. 6. Please allow 2-3 days to process refills. Prescriptions will not be mailed but must be picked up at the office. FOLLOW UP VISIT: Keep your scheduled follow-up appointment. Any questions, please call the office at . Pending Studies at Discharge: No Stand-Alone Forms: My Bantr, Smoking Cessation Medications and IA Order Prescriptions: New tramadol 50 mg tablet 50 mg PO Q6H PRN (Reason: pain, moderate) Qty: 30 RF: 0 Continued simvastatin 20 mg tablet 20 mg PO QPM RF: 0 hydrocortisone 2.5 % cream with applicator 2.5 % topical DAILY PRN (Reason: as directed) RF: 0 cholecalciferol (vitamin D3) 1,000 unit (25 mcg) tablet 2,000 units PO QAM RF: 0 cyanocobalamin (vitamin B-12) 1,000 mcg tablet 1,000 mcg PO QAM RF: 0 gemfibrozil 600 mg tablet 600 mg PO BID Qty: 180 RF: 0 lisinopril-hydrochlorothiazide 20-12.5 mg tablet 1 tab PO QAM Qty: 90 RF: 0 levothyroxine 50 mcg tablet 50 mcg PO QAM RF: 0 Discontinued diclofenac sodium [Voltaren] 1 % gel 4 gm TOP QID PRN (Reason: Pain) RF: 0 Discharge Orders: Discharge Order (Routine); Ordered 10/06/19 Ordered By: aIn No Admission Data Admit Date/Time: 10/04/19 16:30 Attending Provider: Ian No Admit Provider: Ian No Primary Care Provider: Nash Malik Other Providers: Ronan Mulligan
== END 2019-10-06 13:00 | disposition home health service (06) | DRG 454 ==
LOC: ASU 10:52 → 3E 16:30

== ENCOUNTER 2022-06-29 07:36 | Inpatient (IN) ==
--- NOTE | 2022-06-09 10:39 | PAT Medication Instructions ---
Medication Instructions Date of Service June 09, 2022 Home Medications Medication Instructions Recorded gemfibrozil 600 mg tablet 600 mg PO BID #28 tabs 05/19/22 cholecalciferol (vitamin D3) 25 mcg (1,000 unit) tablet 2,000 units PO QAM cyanocobalamin (vitamin B-12) 1,000 mcg tablet 1,000 mcg PO QAM fluticasone propionate 50 mcg/actuation nasal spray,suspension (Flonase Allergy Relief) 1 spray intranasal BID PRN diclofenac sodium 1 % topical gel 4 g topical QID PRN gemfibrozil 600 mg tablet 600 mg PO BID levothyroxine 75 mcg tablet 75 mcg PO QAM losartan 50 mg tablet 50 mg PO QAM simvastatin 20 mg tablet 20 mg PO PM ASK your surgeon for instructions diclofenac sodium 1 % topical gel 4 g topical QID PRN STOP 48 hours before surgery gemfibrozil 600 mg tablet 600 mg PO BID DO NOT take the morning of surgery cholecalciferol (vitamin D3) 25 mcg (1,000 unit) tablet 2,000 units PO QAM cyanocobalamin (vitamin B-12) 1,000 mcg tablet 1,000 mcg PO QAM losartan 50 mg tablet 50 mg PO QAM Take morning of surgery With a small sip of water, OTHERWISE NOTHING TO EAT OR DRINK AFTER MIDNIGHT: fluticasone propionate 50 mcg/actuation nasal spray,suspension (Flonase Allergy Relief) 1 spray intranasal BID PRN(if needed) levothyroxine 75 mcg tablet 75 mcg PO QAM Take evening before surgery fluticasone propionate 50 mcg/actuation nasal spray,suspension (Flonase Allergy Relief) 1 spray intranasal BID PRN(if needed) simvastatin 20 mg tablet 20 mg PO PM Other Notes If you have any questions please call us at [phone] or [phone] or [phone] or [phone]
--- NOTE | 2022-06-15 13:52 | Anesthesiology Consultation ---
Date of Service June 15, 2022 Assessment & Plan (1) Encounter for pre-operative examination: Chart Review Chart Review: Acceptable Risk for Surgery (pending PCP clearance scheduled 06/16/22 and preop Covid testing results ) and Patient seen in Pre Admission Testing - Awaiting PCP clearance scheduled 06/16/22 Per PAT appt on 06/15/22, patient denies any recent travel or large group activities. No known Covid positive exposures or Covid related symptoms. No known Covid infection in the past 90 days. Pt is vaccinated for Covid. Preop Covid testing scheduled 06/25/22 = will await results. Educated on importance of self quarantining, social distancing and wearing mask in public for the patient one week prior to surgery and after Covid testing done Teaching & Discussion Pre-Anesthesia Teaching/Discussion Notes: Instructed NPO after midnight before surgery,except medications with 15 cc of water. Medication instructions provided according to the PAT guidelines. History Surgery Operation Date: 06/29/22 10:20 Proposed Procedures p T12-L2 Decompression and Fusion, L2-L4 Hardware Removal, Spinal Cord Monitoring - Ian No, Height/Weight Height: 4 ft 11 in Weight: 62.8 kg Allergies Allergy/AdvReac Type Severity Reaction Status Date / Time aspirin Allergy Severe DYSPNEA, Verified 06/05/22 14:45 wheezing sulfamethoxazole AdvReac Severe Hives Verified 06/05/22 14:45 [From Bactrim] trimethoprim [From Bactrim] AdvReac Severe Hives Verified 06/05/22 14:45 Medications Home Medications Medication Instructions Recorded Confirmed Last Taken cholecalciferol (vitamin D3) 25 2,000 units PO QAM 06/21/19 06/05/22 10/03/19 12:00 mcg (1,000 unit) tablet cyanocobalamin (vitamin B-12) 1,000 mcg PO QAM 06/21/19 06/05/22 10/03/19 12:00 1,000 mcg tablet fluticasone propionate 50 1 spray intranasal BID PRN 07/30/21 06/05/22 Unknown mcg/actuation nasal Congestion spray,suspension (Flonase Allergy Relief) diclofenac sodium 1 % topical gel 4 g topical QID PRN Pain 02/27/22 06/05/22 Unknown gemfibrozil 600 mg tablet 600 mg PO BID #28 tabs 05/19/22 06/05/22 Unknown levothyroxine 75 mcg tablet 75 mcg PO QAM 06/05/22 06/05/22 Unknown losartan 50 mg tablet 50 mg PO QAM 06/05/22 06/05/22 Unknown simvastatin 20 mg tablet 20 mg PO PM 06/05/22 06/05/22 Unknown Past Medical History Medical History (Updated 06/15/22 @ 14:33 by Jennifer Castorena PA-C) Asthma No inhalers needed Well controlled and stable Cardiac murmur Present since at least 2018- had ECHO at that time - heavily calcified AV and MV annulus but no stenosis CKD (chronic kidney disease) Stable per PCP records GERD (gastroesophageal reflux disease) Occasional- well controlled and stable Gout No recent issue History of blood transfusion 2007 (post-op) History of pancreatitis 1997 Hx of rheumatic fever As child No heart valve issues known Hyperlipidemia Hypertension Hypothyroidism Mesothelioma of peritoneum S/p surgery, chemo (2007) Osteopenia Prediabetes Per PCP records Hgb A1C 6.3 on 03/20/22 Diet controlled Exercise / Class Metabolic Activity II 4-5 Yardwork/Stairs/Walk up hill (one flight of stairs - no chest pain or SOB ) Past Family History Family History Father Cancer Mother Diverticulitis of colon Hypertension Pancreatitis Nephrolithiasis Sister Breast cancer Colon cancer Osteoarthritis Hypertension Colorectal cancer Hearing loss Brother Prostate cancer Hearing loss Son Migraine headache Denies family history of Ovarian cancer No family history of adverse response to anesthesia No family history of bleeding disorder Heart disease Myocardial infarction Asthma Past Surgical History Surgical History H/O abdominal surgery + heated chemo for mesothelioma H/O colonoscopy History of carpal tunnel surgery right History of cataract surgery bilat History of spinal fusion L3-S1 decompression/fusion: Grade 3 view, MAC#3, ETT 7.0 at [facility] History of total abdominal hysterectomy and bilateral salpingo-oophorectomy Hx of tonsillectomy Past Anesthesia History No Hx of Anesthesia Complications and No Family Hx of Anesthesia Complications History of PONV No Hx of PONV and No Hx of Motion Sickness Social History Smoking Status: Never smoker Do You Dip or Chew Tobacco: No Hx Alcohol Use: No Hx Substance Use: No substance use type: does not use Review of Systems Patient denies chest pain, shortness of breath at rest, cough, wheezing, palpitations. No hx of seizures, stroke, AK, apnea/snoring. No hx of blood clots Physical Exam Vital Signs VITALS BP 165/89 (usually well controlled per patient) P 77 TEMP 98.0 SP02 97% RESP 16 Constitutional no acute distress ENMT Mouth: no TMJ clicking Thyromental Distance: < 3.5 Finger Breadths (3.0) Mallampati Class: III Cap to molar Neck neck extension not limited Respiratory normal respiratory effort; no respiratory distress Auscultation: lungs clear to auscultation bilaterally; no wheezes Cardiovascular Rate/Rhythm: regular rate and regular rhythm Heart Sounds: + murmur (III/ murmur ) Vessels: no carotid bruit Musculoskeletal Spine: no pain with cervical ROM Extremities: extremities normal to inspection Psychiatric Orientation: alert Lab Results Anesthesia Preop Results Results Anesthesia Widget: WBC 6.25 K/ul (4.8-10.8) 06/15/22 Hgb 11.2 g/dl (12.0-16.0) L 06/15/22 Hct 32.7 % (34.1-44.9) L 06/15/22 Plt 253 K/uL (130-400) 06/15/22 Na 138 mmol/L (136-145) 06/15/22 K 4.0 mmol/L (3.5-5.1) 06/15/22 Cl 107 mmol/L (98-107) 06/15/22 CO2 22 mmol/L (21-32) 06/15/22 BUN 32 mg/dl (6-23) H 06/15/22 Creat 1.03 mg/dl (0.6-1.2) 06/15/22 Glucose Level 99 mg/dl (70-99(Fasting)) 06/15/22 PT 10.6 Seconds (9.0-12.0) 06/15/22 PTT 24.5 Seconds (21.0-31.0) 06/15/22 INR 1.0 (0.9-1.1) 06/15/22 TSH 1.784 uIu/ml (0.300-4.500) 06/15/22 HA1c 5.6 % (4.5-5.6) 06/15/22 Urine Color Yellow 06/15/22 Urine Appearance Clear (Clear) 06/15/22 Urine pH 5.5 (4.5-7.5) 06/15/22 Urine Specific [place] 1.020 (1.000-1.030) 06/15/22 Urine Protein 3+ (Negative) H 06/15/22 Urine Glucose (UA) Negative (Negative) 06/15/22 Urine Ketones Negative (Negative) 06/15/22 Urine Blood Trace (Negative) H 06/15/22 Urine Nitrite Negative (Negative) 06/15/22 Urine Bilirubin Negative (Negative) 06/15/22 Urine Urobilinogen Negative (Negative) 06/15/22 Urine Leukocyte Esterase Negative (Negative) 06/15/22 Urine WBC (Auto) 1-5 /hpf (0-5) 06/15/22 Urine RBC (Auto) 5-10 /hpf (0-4) H 06/15/22 Urine Hyaline Casts (Auto) 1-5 /lpf (0-5) 06/15/22 Urine Epithelial Cells (Auto) >30 /lpf (0-5) H 06/15/22 Urine Bacteria (Auto) Negative (Negative) 06/15/22 Blood Type O Positive 06/15/22 Antibody Screen NEGATIVE 06/15/22 Testing Laboratory Results Chronic anemia- stable from previously Electrocardiogram Date: 06/15/22 Findings: + NSR @ (73bpm ) RBBB. LAFB. When compared to EKG from September 11, 2019 - no significant change was found per cardio. Chest X-Ray Date: 06/15/22 Findings: + NAD FINDINGS: The cardiac silhouette is enlarged. Mitral annular calcifications. Eventration of the right hemidiaphragm. There is no pneumothorax, pleural effusion, airspace consolidation or overt pulmonary edema. Degenerative changes of the shoulders and spine. Lumbar spinal fusion hardware. Echocardiogram Date: 09/29/19 EF: 73% RWMA: + none Other Findings: + LVH (mild/concentric ) Hyperdynamic LV systolic function Mildly dilated left atrium. Heavily calcified, tricuspid AV without significant stenosis Severe calcified MV annulus with restriction of the posterior MV leaflet. No significant MV stenosis. Mild MR. Mild TR. (Discussed with Dr. Motley- pt denies any current cardiopulmonary symptoms- will be seen for preop appt by PCP prior to surgery- no further testing needed at this time)
[~2022-06-29 07:36] MED LIST changes: +ALBUMIN HUMAN 5% 12.5 GM/250 ML VIAL IV ONE; -CEFAZOLIN 1000MG 1,000 MG/7.5 ML SYR IV SCH; +LR 15ML/HR IV SCH; -SODIUM CHLORIDE 0.9% 1000ML IV SCH; +SUGAMMADEX SODIUM 200 MG/2 ML VIAL IV ONE; +ceFAZolin 1000MG 1,000 MG/7.5 ML SYR IV SCH
--- NOTE | 2022-06-29 09:27 | History & Physical Bridge Note ---
Date of Service June 29, 2022 History & Physical Bridge Note I have examined the patient, reviewed the History & Physical and in the interval since the performance of the History & Physical I have noted the following changes of clinical significance: no changes noted
--- NOTE | 2022-06-29 09:28 | History & Physical Report ---
Date of Service June 29, 2022 Assessment & Plan (1) Neurogenic claudication due to lumbar spinal stenosis: Plan: T12-L2 decompression and fusion, L2-L4 hardware removal History of Present Illness Chief Complaint: Back and leg pain Primary Care Provider: Nash Malik MD This is an 82-year-old female known to the presents with worsening back and bilateral leg pain. Failing course of nonoperative care is here for surgical invention. Allergies Allergy/AdvReac Type Severity Reaction Status Date / Time aspirin Allergy Severe DYSPNEA, Verified 06/29/22 08:06 wheezing sulfamethoxazole AdvReac Severe Hives Verified 06/29/22 08:06 [From Bactrim] trimethoprim [From Bactrim] AdvReac Severe Hives Verified 06/29/22 08:06 Home Medications Medication Instructions Recorded Confirmed Type cholecalciferol (vitamin D3) 25 2,000 units PO QAM 06/21/19 06/29/22 History mcg (1,000 unit) tablet cyanocobalamin (vitamin B-12) 1,000 mcg PO QAM 06/21/19 06/29/22 History 1,000 mcg tablet fluticasone propionate 50 1 spray intranasal BID PRN 07/30/21 06/29/22 History mcg/actuation nasal Congestion spray,suspension (Flonase Allergy Relief) diclofenac sodium 1 % topical gel 4 g topical QID PRN Pain 02/27/22 06/29/22 History gemfibrozil 600 mg tablet 600 mg PO BID #28 tabs 05/19/22 06/29/22 Rx levothyroxine 75 mcg tablet 75 mcg PO QAM 06/05/22 06/29/22 History losartan 50 mg tablet 50 mg PO QAM 06/05/22 06/29/22 History simvastatin 20 mg tablet 20 mg PO PM 06/05/22 06/29/22 History Past Med/Surg History Medical History Asthma No inhalers needed Well controlled and stable Cardiac murmur Present since at least 2018- had ECHO at that time - heavily calcified AV and MV annulus but no stenosis CKD (chronic kidney disease) Stable per PCP records GERD (gastroesophageal reflux disease) Occasional- well controlled and stable Gout No recent issue History of blood transfusion 2007 (post-op) History of pancreatitis 1997 Hx of rheumatic fever As child No heart valve issues known Hyperlipidemia Hypertension Hypothyroidism Mesothelioma of peritoneum S/p surgery, chemo (2007) Osteopenia Prediabetes Per PCP records Hgb A1C 6.3 on 03/20/22 Diet controlled Surgical History H/O abdominal surgery H/O colonoscopy History of carpal tunnel surgery History of cataract surgery History of spinal fusion History of total abdominal hysterectomy and bilateral salpingo-oophorectomy Hx of tonsillectomy Family History Father Cancer Mother Diverticulitis of colon Hypertension Pancreatitis Nephrolithiasis Sister Breast cancer Colon cancer Osteoarthritis Hypertension Colorectal cancer Hearing loss Brother Prostate cancer Hearing loss Son Migraine headache Denies family history of Ovarian cancer No family history of adverse response to anesthesia No family history of bleeding disorder Heart disease Myocardial infarction Asthma Social History Smoking Status: Never smoker Tobacco Type: Cigarettes Smoking End Date: just in high school; Second Hand Exposure: No; Do You Dip or Chew Tobacco: No; Tobacco Cessation Education Requested by Patient: No Hx Alcohol Use: No Hx Substance Use: No Preferred Language: Tanzanian Communication Ability: Effective Visual Impairment: No Limitations Hearing Ability: Normal Construction Rigger Required: No Beliefs That Will Affect Care: None marital status: Current Living Situation: Spouse current occupational status: retired How many Children do You have: 3 Other Information That Helps Us Care for You: No Feels Safe at Home: Yes Safety Concerns: Feels Safe At This Time Childhood Exposure to Second-Hand Smoke: No Dental Care, Regularly: Yes Physical Activity Frequency: 1-2 Times per Week Seatbelt Use: always Sunscreen Use: Yes Assistive Devices: Glasses and Hearing Aid - Bilateral Physical Exam Physical Exam: Patient is alert and oriented Heart rate and rhythm Lungs clear Results & Data Results & Data ([facility]) Vital Signs (Past 12 Hours) Vital Signs Temp Pulse Resp BP Pulse Ox O2 Del Method 06/29/22 07:56 36.7 C 90 20 174/92 H 97 Room Air
[2022-06-29] MEDS ORDERED: ePHEDrine sulfate 50 MG/ML AMP IV PRN (09:29)
[2022-06-29] MEDS ORDERED: fentaNYL citrate 100 MCG/2 ML VIAL IV PRN (09:29)
[2022-06-29] MEDS ORDERED: ATROPINE SULFATE 0.1 MG/ML 10ML SYR IV PRN (09:29)
[2022-06-29] MEDS ORDERED: HYDROmorphone INJ 2 MG/ML SYR/VIAL IV PRN (09:29)
[2022-06-29] MEDS ORDERED: ONDANSETRON INJ 2 MG/ML 2 ML VIAL IV PRN ×2 (09:29→13:27)
[2022-06-29] MEDS ORDERED: BUPIVACAINE/EPINEPHRINE 0.25% 1:200,000 30 ML VIAL ONE (09:44)
[2022-06-29] MEDS ORDERED: ceFAZolin 330 MG/ML 1 GM VIAL ONE (09:44)
[2022-06-29] MEDS ORDERED: ONDANSETRON INJ 2 MG/ML 2 ML VIAL ONE (09:50)
[2022-06-29] MEDS ORDERED: DEXAMETHASONE SOD INJ 4 MG/ML VIAL ONE (09:50)
[2022-06-29] MEDS ORDERED: ROCURONIUM BROMIDE 10 MG/ML 5 ML VIAL IV ONE (09:50)
[2022-06-29] MEDS ORDERED: PROPOFOL IV EMULSION 10 MG/ML 20 ML VIAL IV ONE (09:50)
[2022-06-29] MEDS ORDERED: LIDOCAINE 2% MPF LOCAL 5 ML VIAL INFIL ONE (09:50)
[2022-06-29] MEDS ORDERED: fentaNYL citrate 100 MCG/2 ML VIAL ONE ×2 (09:51→10:59)
[2022-06-29] MEDS ORDERED: PHENYLEPHRINE HCL 10 MG/ML VIAL ONE (09:51)
[2022-06-29] MEDS ORDERED: ePHEDrine sulfate 50 MG/ML AMP ONE (10:19)
[2022-06-29] MEDS ORDERED: KETAMINE 50 MG/5 ML SYRINGE ONE (10:29)
[2022-06-29] MEDS ORDERED: FLOSEAL HEMOSTATIC MATRIX 10ML TOP ONE (10:52)
--- NOTE | 2022-06-29 11:44 | Operative Report ---
Post Operative Report Pre & Post Diagnosis Operation Date: 06/29/22 09:35 Pre-Op Diagnosis: Neurogenic Claudication due to Spinal Stenosis T12-L2, Previous Fusion L2-L4 Post-Op Diagnosis: Neurogenic Claudication due to Spinal Stenosis T12-L2, Previous Fusion L2-L4 I identified the patient and participated in the time-out.: Yes Procedure Operation Date: 06/29/22 09:35 Actual Procedures #1 removal of posterior instrumentation L2-L4. #2 exploration of fusion L2-L4. #3 lumbar decompression with bilateral medial facetectomies and foraminotomies T12-L1 L1-L2. #4 posterior spinal fusion T12-L2. #5 placement posterior instrumentation T12-L4. #6 interbody fusion L1-L2 #7 placement of Spira 8 x 22 mm cage at L1-L2. #8 placement of locally harvested morselized autograft in the posterior gutters. #9 placement of I factor and interbody space and infuse collagen sponge, master graft in the posterior gutters T12-L2. Surgeon Ian No, Research Technologist Renea Richards Estimated Blood Loss 200 Findings Consistent with Post-Op Diagnosis Specimens None Indications This is an 82-year-old female who presents with the above-mentioned diagnosis after failing course of nonoperative care she is here for surgical invention. Description of Procedure Patient was met with identified informed consent obtained. Patient was then taken to the operative suite underwent a patient placed in a prone position the Jay table on top of the Gil frame. All bony prominences well-padded eyes inspected to ensure no external pressure placed upon them. This point the thoracolumbar spine was prepped and draped in the normal sterile fashion. Sharp dissection with assistance of Bovie cautery was performed down to and exposing the lamina transverse processes of T12 and L1 and instrumentation at L2-L3-L4 bilaterally. Then proceeded to remove the hardware bilaterally explore the fusion mass noting it to be mature and intact. Then performed a complete laminectomy of L1 partial laminectomy of T12 including bilateral medial facetectomies and foraminotomies addressing severe spinal stenosis. Pedicle screws were then placed in T12 L1-L2 and L4 bilaterally with assistance of fluoroscopy and the properly sized jose alejandro placed. By way of a transforaminal approach on the left complete discectomy of L1-L2 was performed endplates curetted to subcortically bone and a 8 x 22 mm spiral cage with I factor tapped in position. The rods were then locked into final position bilaterally. The transverse processes of T12 L1-L2 were burred to subcortical bleeding bone. Infuse collagen sponge master graft and local autograft was placed in the posterior gutters. 15 round KAREN drain inserted. The incision was then closed with 1 Vicryl in the fascia 2-0 Vicryl subcutaneously and 4 Monocryl for final skin closure. Steri-Strip sterile dressings placed. Patient waken taken PACU stable condition. Please note spinal cord monitoring was utilized at the procedure no changes noted. Lastly Renea Richards was present out the entire procedure The patient positioning complex portions of the surgery and fascial closure. I attest to the content of the Intraoperative Record and any orders documented therein. Any exceptions are noted below.
--- NOTE | 2022-06-29 12:05 | Fluoroscopy Report ---
FL lumbar spine 2-3V CLINICAL HISTORY: T12-L2 DECOMP/FUSION, L2-L4 HARDWARE REMOVAL TECHNIQUE: 2 views were obtained with the C-arm in the OR with the above procedure. Total fluoroscopy time was 30.4 seconds. Total skin dose was 19.69 mGy. Comparison: None available at the time of this dictation. FINDINGS/IMPRESSION: Intraoperative images were obtained of T12-L2 discectomy and fusion with removal of L2-L3 hardware. Please correlate with intraoperative fluoroscopy and operative report. ACT 112: Negative or not required by law. Electronically signed by: Saqib Hilario M.D. 06/29/2022 12:04 PM
--- NOTE | 2022-06-29 12:47 | Anesthesiology Progress Note ---
Date of Service June 29, 2022 Anesthesia Post Procedure Vital Signs Vital Signs: Temp Pulse Pulse Resp BP Pulse Ox O2 Del Method 06/29/22 12:45 89 14 141/80 H 98 Nasal Cannula 06/29/22 12:35 36.5 C 85 14 161/81 H 96 Oxymask 06/29/22 12:25 83 14 157/79 H 94 Oxymask 06/29/22 12:15 90 14 167/86 H 99 Oxymask 06/29/22 12:05 85 14 127/66 99 Oxymask 06/29/22 11:59 36.4 C L 88 12 127/63 99 Oxymask 06/29/22 07:56 36.7 C 90 20 174/92 H 97 Room Air O2 Flow Rate 06/29/22 12:45 2 06/29/22 12:35 3 06/29/22 12:25 3 06/29/22 12:15 3 06/29/22 12:05 5 06/29/22 11:59 5 06/29/22 07:56 Pain Intensity Bilateral Back: Pain Intensity: 5 Transfer of Care Handoff Completed per policy Notes Mental Status: alert / awake / arousable and participated in evaluation Patient Amnestic to Procedure: Yes Nausea / Vomiting: adequately controlled Pain: adequately controlled Airway Patency, RR, SpO2: stable & adequate BP & HR: stable & adequate Hydration State: stable & adequate Anesthetic Complications: no major complications apparent and Pt Satisfied with anesthetic care
[2022-06-29] MEDS ORDERED: hydrOXYzine HCl 25 MG TAB PO PRN (13:27)
[2022-06-29] MEDS ORDERED: SOD PHOSPHATE/SOD BIPHOSPHATE ENEMA 132 ML BTL PR PRN (13:27)
[2022-06-29] MEDS ORDERED: bisacodyL 10 MG SUPP PR PRN (13:27)
[2022-06-29] MEDS ORDERED: FAMOTIDINE 20 MG TAB PO PRN (13:27)
[2022-06-29] MEDS ORDERED: diphenhydrAMINE Capsule 25 MG CAP PO PRN (13:27)
[2022-06-29] MEDS ORDERED: LORazepam 0.5 MG TAB PO PRN (13:27)
[2022-06-29] MEDS ORDERED: METOCLOPRAMIDE HCL INJ 5 MG/ML 2 ML VIAL IV PRN (13:27)
[2022-06-29] MEDS ORDERED: MAGNESIUM HYDROXIDE SUSP 30 ML UDC PO PRN (13:27)
[2022-06-29] MEDS ORDERED: HYDROmorphone INJ 0.5 MG/0.5 ML SYR IV PRN (13:27)
[2022-06-29] MEDS ORDERED: ACETAMINOPHEN 1,000 MG/100 ML VIAL IV PRN (13:27)
[2022-06-29] MEDS ORDERED: PROMETHAZINE HCL 12.5 MG in SODIUM CHLORIDE 0.9% 50 ML IV PRN (13:27)
[2022-06-29] MEDS ORDERED: ALUMINUM/MAGNESIUM SUSP 30 ML UDC PO PRN (13:27)
[2022-06-29] MEDS ORDERED: ONDANSETRON 4 MG OD TAB PO PRN (13:27)
[2022-06-29] MEDS ORDERED: ACETAMINOPHEN 500 MG TAB PO PRN (13:27)
[2022-06-29] MEDS ORDERED: NALOXONE HCL 0.4 MG/1 ML VIAL/CARP IV PRN (13:27)
[2022-06-29] MEDS ORDERED: LORazepam 0.5 MG in SYRINGE 0.25 ML IV PRN (13:27)
[2022-06-29] MEDS ORDERED: HYDROmorphone INJ 1 MG/ML SYRINGE IV PRN (13:27)
[2022-06-29] MEDS ORDERED: oxyCODONE HCL IR 5 MG TAB (IMMEDIATE RELEASE) PO PRN (13:27)
[2022-06-29] MEDS: traMADol HCL 50 MG TABLET PO PRN ×2 (15:01→20:43)
[2022-06-29] MEDS: SODIUM CHLORIDE 0.9% 1000ML 1,000 ML IV SCH (17:29)
[2022-06-29] MEDS: ceFAZolin 1000MG 1,000 MG/7.5 ML SYR IV SCH (18:07)
[2022-06-29] MEDS: DOCUSATE SODIUM/SENNA 50/8.6MG TAB PO SCH (20:39)
[2022-06-29] MEDS: gemfibroziL 600 MG TAB PO SCH (20:39)
[2022-06-29] MEDS: SIMVASTATIN 20 MG TAB PO SCH (20:40)
[2022-06-30] MEDS: SODIUM CHLORIDE 0.9% 1000ML 1,000 ML IV SCH ×2 (00:44→03:14)
[2022-06-30] MEDS: ceFAZolin 1000MG 1,000 MG/7.5 ML SYR IV SCH (01:15)
[2022-06-30] MEDS: POLYETHYLENE (MIRALAX) 17 GM PACK PO SCH ×3 (06:25→17:11)
[2022-06-30] MEDS: LEVOTHYROXINE SODIUM 75 MCG TABLET PO SCH (06:25)
[2022-06-30 06:46] LABS: Basophils # (auto) 0.03 K/uL (0-0.2); Basophils % (auto) 0.3 %; Hematocrit (blood only) 23.8 % (34.1-44.9); Hemoglobin 7.9 g/dl (12.0-16.0); Immature Granulocytes # (auto) 0.07 K/uL (0.00-0.02); Immature Granulocytes % (auto) 0.7 %; Lymphocytes # (auto) 1.24 K/uL (1.2-3.4); Lymphocytes % (auto) 11.8 %; Mean Corpuscular Hgb Conc 33.2 g/dL (32.0-36.0); Mean Corpuscular Volume 90.5 fL (80.0-100.0); Monocytes # (auto) 0.85 K/uL (0.24-0.82); Monocytes % (auto) 8.1 %; Neutrophils % (auto) 79.1 %; Platelet Count 181 K/uL (130-400); RDW Coefficient of Variation 13.9 % (11.5-14.5); RDW Standard Deviation 45.5 fL (36.4-46.3); Red Blood Count 2.63 M/uL (3.93-5.22); White Blood Count 10.49 K/ul (4.8-10.8)
[2022-06-30 07:13] LABS: Calcium 8.9 mg/dl (8.5-10.1); Creatinine Clr Calc Pharmacy 37.2 ml/min; Est GFR (African American) 66.3 ml/min; Est GFR (Non-African American) 57.2 ml/min; Potassium 4.7 mmol/L (3.5-5.1)
[2022-06-30 07:34] LABS: RBC Morphology Unremarkable
--- NOTE | 2022-06-30 08:01 | Hospitalist Consultation ---
Date of Consultation June 30, 2022 Assessment & Plan (1) Neurogenic claudication due to lumbar spinal stenosis: POD#1 s/p #1 removal of posterior instrumentation L2-L4. #2 exploration of fusion L2-L4. #3 lumbar decompression with bilateral medial facetectomies and foraminotomies T12-L1 L1-L2. #4 posterior spinal fusion T12-L2. #5 placement posterior instrumentation T12-L4. #6 interbody fusion L1-L2 #7 placement of Spira 8 x 22 mm cage at L1-L2. #8 placement of locally harvested morselized autograft in the posterior gutters. #9 placement of I factor and interbody space and infuse collagen sponge, master graft in the posterior gutters T12-L2. with Dr No EBL 200cc, KAREN 75cc thus far Pre-op hgb 11.3--> 7.9. acute blood loss in patient with chronic anemia however also some dilutional from IVF provided. Discussed with Dr No and patient 100% on room air, no sob or CP reported and holding off on giving unit of blood at this time and will monitor Dexamethasone IV per primary Pain control/bowel regimen/PT/OT/DVT prophylaxis per primary service Tramadol effective for pain this morning Asked RN to given milk of magnesium x 1 given effectiveness prior surgery 2018 Patient states 3 days inpatient then d/c, will follow along for tomorrow and if remains stable sign off. (2) Hypertension: Switched from HCTZ to losartan couple of months ago, recently thought about increasing medications BP stable currently and will continue losartan (3) Hyperlipidemia: lipid panel w/ LDL 107, HDL 47 in 2021, remains on simvastatin and gemfibrozil (4) Hypothyroidism: last TSH 1.784 on 06/15/22 Continue levothyroxine 75mcg daily (5) CKD (chronic kidney disease): Cr stable and at baseline Renal dose meds/avoid nephrotoxic agents when able (6) Anemia: chronic but with acute blood loss anemia from surgery as above holding off on transfusion currently, no CP/SOB and 100% on RA, Cr stable Monitor CBC in AM (7) Pre-diabetes: a1c 5.6 on pre-op labs Glucose 144 on am labs and will add BSG ac/hs add ISS if elevated to promote good wound healing (8) Cardiac murmur: noted on exam by Dr. Tussey-ECHO 2019 with mild MR, heavily calcified AV could be accentuated by hemoglobin drop/anemia monitor as outpt Plan Thank you for allowing hospitalist service to participate in the care of Ms English. Hospitalist service will follow along Supervising Physician Co-Signing Physician Notes PA Supervision Note: I personally saw and examined the patient. I verified all [place] points and agree with DIAZ Montana with the following exceptions and/or additions: S-feeling wel, worried about constipation no other issues History and ROS reviewed O- Vitals reviewed Gen: [AAOx3, NAD] HEENT: [anicteric sclerae, EOMI] CV: [RRR 2/6 holosystolic murmur at apex, nl S1S2] Pulm: [CTAB no wcr] Abd: [+BS soft NT ND no masses or hernias] Ext: [no edema, 2+ DP pulses] Skin: [no rashes, warm/dry] Neuro: [full strength throughout] A/P-82 yo female here s/p lumbar surgeyr doing well, with acute blood loss anemia but HD stable continue to follow History of Present Illness Reason for Consultation: medical management Requesting Physician: Dr No Attending Physician: Ian No, History of Present Illness 82 yo female with PMHx significant for CKD, HTN, HLD, Hypothyroidism, GERD, Asthma, pre-DM presented for T12-L2 decompression and fusion with Dr No on 06/29. Patient evaluated in room 321. Doing well, denies any leg symptoms numbness/tingling and only having some back pain at site of incision. Couple position changes in bed as she felt tight last night, but much better today. Denies any chest pain, shortness of breath, fevers or chills. Anticipating 3 days inpatient she states then she told Dr No she wants to go home. Eating/drinking without issue but states not passing gas yet (does have +BS) and denies abdominal pain. Prior surgery in 2019 with similar blood drop not requiring transfusion and discussed Dr No wanting to hold off for now and will monitor. Patient states she took miralax this morning but discussed what worked best last admission. She believes it was milk of magnesia. Asked RN to administer dose now. Allergies Allergy/AdvReac Type Severity Reaction Status Date / Time aspirin Allergy Severe DYSPNEA, Verified 06/29/22 08:06 wheezing sulfamethoxazole AdvReac Severe Hives Verified 06/29/22 08:06 [From Bactrim] trimethoprim [From Bactrim] AdvReac Severe Hives Verified 06/29/22 08:06 Home Medications Medication Instructions Recorded Confirmed Type cholecalciferol (vitamin D3) 25 2,000 units PO QAM 06/21/19 06/29/22 History mcg (1,000 unit) tablet cyanocobalamin (vitamin B-12) 1,000 mcg PO QAM 06/21/19 06/29/22 History 1,000 mcg tablet fluticasone propionate 50 1 spray intranasal BID PRN 07/30/21 06/29/22 History mcg/actuation nasal Congestion spray,suspension (Flonase Allergy Relief) diclofenac sodium 1 % topical gel 4 g topical QID PRN Pain 02/27/22 06/29/22 History gemfibrozil 600 mg tablet 600 mg PO BID #28 tabs 05/19/22 06/29/22 Rx levothyroxine 75 mcg tablet 75 mcg PO QAM 06/05/22 06/29/22 History losartan 50 mg tablet 50 mg PO QAM 06/05/22 06/29/22 History simvastatin 20 mg tablet 20 mg PO PM 06/05/22 06/29/22 History oxycodone 5 mg tablet 5 mg PO Q6H PRN pain, severe #30 06/30/22 Rx tabs tramadol 50 mg tablet 50 mg PO Q6H PRN pain, moderate 06/30/22 Rx #30 tabs Patient History Medical History (Updated 06/30/22 @ 11:36 by Dian Infante MD) Asthma No inhalers needed Well controlled and stable Cardiac murmur Present since at least 2018- had ECHO at that time - heavily calcified AV and MV annulus but no stenosis CKD (chronic kidney disease) Stable per PCP records GERD (gastroesophageal reflux disease) Occasional- well controlled and stable Gout No recent issue History of blood transfusion 2007 (post-op) History of pancreatitis 1997 Hx of rheumatic fever As child No heart valve issues known Hyperlipidemia Hypertension Hypothyroidism Mesothelioma of peritoneum S/p surgery, chemo (2007) Osteopenia Prediabetes Per PCP records Hgb A1C 6.3 on 03/20/22 Diet controlled Surgical History H/O abdominal surgery + heated chemo for mesothelioma H/O colonoscopy History of carpal tunnel surgery right History of cataract surgery bilat History of spinal fusion L3-S1 decompression/fusion: Grade 3 view, MAC#3, ETT [address] [facility] History of total abdominal hysterectomy and bilateral salpingo-oophorectomy Hx of tonsillectomy Family History Father Cancer Mother Diverticulitis of colon Hypertension Pancreatitis Nephrolithiasis Sister Breast cancer Colon cancer Osteoarthritis Hypertension Colorectal cancer Hearing loss Brother Prostate cancer Hearing loss Son Migraine headache Denies family history of Ovarian cancer No family history of adverse response to anesthesia No family history of bleeding disorder Heart disease Myocardial infarction Asthma Social History Smoking Status: Never smoker Tobacco Type: Cigarettes Smoking End Date: just in high school; Second Hand Exposure: No; Do You Dip or Chew Tobacco: No; Tobacco Cessation Education Requested by Patient: No Hx Alcohol Use: No Hx Substance Use: No Preferred Language: Pakistani Communication Ability: Effective Visual Impairment: No Limitations Hearing Ability: Normal Heel Seat Pounder Required: No Beliefs That Will Affect Care: None marital status: Current Living Situation: Spouse current occupational status: retired How many Children do You have: 3 Other Information That Helps Us Care for You: No Feels Safe at Home: No Is there a partner from a previous relationship who is making you feel unsafe now?: No Any Concerns about Your Family Situation: No Would You Like to Speak to Someone About Your Situation: No Safety Concerns: Feels Safe At This Time Childhood Exposure to Second-Hand Smoke: No Dental Care, Regularly: Yes Physical Activity Frequency: 1-2 Times per Week Seatbelt Use: always Sunscreen Use: Yes Assistive Devices: None Review of Systems Review of Systems: All systems reviewed & are unremarkable except as noted in HPI & below Physical Exam Physical Exam: General: WN/WD elderly female sitting up in bed, NAD HEENT: head normocephalic, atraumatic, mmm, pupils equal and reactive, trachea midline without deviation Resp: CTAB, no w/c/r, on room air CV: RRR, no m/r/g, trace pedal edema, no calf tenderness (maritza hose/SCDs in place), cap refill wnl GI:+BS, soft, nontender : cai draining clear yellow urine MSK/Neuro: dressing to lumbar spine c/d/i, KAREN with scant blood drainage, NVI, pulses palpable, equal strength dorsiflexion/plantarflexion Skin: warm dry Psych: alert, oriented x3, pleasant and cooperative Results & Data Results & Data ([facility]) Vital Signs (Past 12 Hours) Vital Signs Temp Pulse Resp BP BP Pulse Ox O2 Del Method 06/30/22 07:33 36.5 C 79 18 113/67 100 Nasal Cannula 06/30/22 04:37 36.4 C L 80 18 105/62 99 Nasal Cannula 06/29/22 20:40 Room Air, Nasal Cannula 06/30/22 00:36 36.3 C L 81 18 125/70 99 Nasal Cannula 06/29/22 20:55 36.4 C L 80 18 120/70 100 Nasal Cannula O2 Flow Rate 06/30/22 07:33 2 06/30/22 04:37 2 06/29/22 20:40 2 06/30/22 00:36 2 06/29/22 20:55 2 Laboratory Results 06/30/22 06/30/22 06/29/22 Range/Units 06:32 06:32 07:56 WBC 10.49 (4.8-10.8) K/ul RBC 2.63 L (3.93-5.22) M/uL Hgb 7.9 L (12.0-16.0) g/dl Hct 23.8 L (34.1-44.9) % MCV 90.5 (80.0-100.0) fL MCH 30.0 (25.0-34.0) pg MCHC 33.2 (32.0-36.0) g/dL RDW Std Deviation 45.5 (36.4-46.3) fL RDW Coeff of Carlitos 13.9 (11.5-14.5) % Plt Count 181 (130-400) K/uL MPV 10.0 (9.4-12.3) fL Immature Gran % (Auto) 0.7 % Neut % (Auto) 79.1 % Lymph % (Auto) 11.8 % [place] % (Auto) 8.1 % Eos % (Auto) 0.0 % Baso % (Auto) 0.3 % Neut # (Auto) 8.30 H (1.4-6.5) K/uL Lymph # (Auto) 1.24 (1.2-3.4) K/uL [place] # (Auto) 0.85 H (0.24-0.82) K/uL Eos # (Auto) 0.00 (0-0.50) K/uL Baso # (Auto) 0.03 (0-0.2) K/uL Immature Gran # (Auto) 0.07 H (0.00-0.02) K/uL RBC Morphology Unremarkable Sodium 135 L (136-145) mmol/L Potassium 4.7 (3.5-5.1) mmol/L Chloride 104 (98-107) mmol/L Carbon Dioxide 25 (21-32) mmol/L Anion Gap 6 (3-11) BUN 27 H (6-23) mg/dl Creatinine 0.93 (0.6-1.2) mg/dl Est Cr Clr Drug Dosing 37.2 ml/min Est GFR ( Amer) 66.3 ml/min Est GFR (Non-Af Amer) 57.2 ml/min BUN/Creatinine Ratio 29.0 H (10-20) Glucose 144 H (70-99(Fasting)) mg/dl Calcium 8.9 (8.5-10.1) mg/dl Blood Type O Positive Antibody Screen NEGATIVE Diagnostic Findings Lumbar Spine X-Ray 06/29/22 00:00 FL lumbar spine 2-3V CLINICAL HISTORY: T12-L2 DECOMP/FUSION, L2-L4 HARDWARE REMOVAL TECHNIQUE: 2 views were obtained with the C-arm in the OR with the above procedure. Total fluoroscopy time was 30.4 seconds. Total skin dose was 19.69 mGy. Comparison: None available at the time of this dictation. FINDINGS/IMPRESSION: Intraoperative images were obtained of T12-L2 discectomy and fusion with removal of L2-L3 hardware. Please correlate with intraoperative fluoroscopy and operative report. ACT 112: Negative or not required by law. Electronically signed by: Saqib Hilario M.D. 06/29/2022 12:04 PM PG Care Time/CCT Total # of Minutes Spent Total Time Spent with Patient: Total time spent is greater than 50% in coordination of care (as documented) at patient's floor/unit and/or counseling patient: Coding Level of Care Code 72325 Inpt Consult Level 3 Diagnoses Neurogenic claudication due to lumbar spinal stenosis M48.062 Hypertension I10 Hyperlipidemia E78.5 Hypothyroidism E03.9 CKD (chronic kidney disease) N18.9 Anemia D64.9 Pre-diabetes R73.03 Cardiac murmur R01.1
[2022-06-30] MEDS: dexAMETHasone 6 MG in SYRINGE 0 ML IV SCH (08:20)
[2022-06-30] MEDS: CHOLECALCIFEROL 1,000 UNITS 25 MCG TAB PO SCH (08:20)
[2022-06-30] MEDS: traMADol HCL 50 MG TABLET PO PRN ×2 (08:20→17:24)
[2022-06-30] MEDS: LOSARTAN POTASSIUM 50 MG TAB PO SCH (08:21)
[2022-06-30] MEDS: gemfibroziL 600 MG TAB PO SCH ×2 (08:21→20:52)
[2022-06-30] MEDS: CYANOCOBALAMIN (B-12) 500 MCG TABLET PO SCH (08:21)
--- NOTE | 2022-06-30 08:32 | Orthopedic Progress Note ---
Date of Service June 30, 2022 Assessment & Plan (1) Neurogenic claudication due to lumbar spinal stenosis: Plan: This time continue physical therapy monitor KAREN operatively discharge home in next few days. Admission and Anticipated Discharge Date Admission Date: June 29, 2022 Subjective Back pain controlled leg pain markedly improved Physical Exam Physical Exam: Patient is in bed. She has excellent strength testing. Appears comfortable. Results & Data ([facility]) Vital Signs (Past 12 Hours) Vital Signs Temp Pulse Resp BP BP Pulse Ox O2 Del Method 06/30/22 07:55 Room Air 06/30/22 07:33 36.5 C 79 18 113/67 100 Nasal Cannula 06/30/22 04:37 36.4 C L 80 18 105/62 99 Nasal Cannula 06/29/22 20:40 Room Air, Nasal Cannula 06/30/22 00:36 36.3 C L 81 18 125/70 99 Nasal Cannula 06/29/22 20:55 36.4 C L 80 18 120/70 100 Nasal Cannula O2 Flow Rate 06/30/22 07:55 06/30/22 07:33 2 06/30/22 04:37 2 06/29/22 20:40 2 06/30/22 00:36 2 06/29/22 20:55 2
[2022-06-30] MEDS: SIMVASTATIN 20 MG TAB PO SCH (20:51)
[2022-06-30] MEDS: DOCUSATE SODIUM/SENNA 50/8.6MG TAB PO SCH (20:51)
[2022-07-01] MEDS: POLYETHYLENE (MIRALAX) 17 GM PACK PO SCH ×3 (00:34→11:39)
[2022-07-01] MEDS: LEVOTHYROXINE SODIUM 75 MCG TABLET PO SCH (05:37)
[2022-07-01] MEDS: traMADol HCL 50 MG TABLET PO PRN (07:15)
--- NOTE | 2022-07-01 07:41 | Hospitalist Progress Note ---
Date of Service July 01, 2022 Assessment & Plan (1) Neurogenic claudication due to lumbar spinal stenosis: Plan: POD#2 s/p #1 removal of posterior instrumentation L2-L4. #2 exploration of fusion L2-L4. #3 lumbar decompression with bilateral medial facetectomies and foraminotomies T12-L1 L1-L2. #4 posterior spinal fusion T12-L2. #5 placement posterior instrumentation T12-L4. #6 interbody fusion L1-L2 #7 placement of Spira 8 x 22 mm cage at L1-L2. #8 placement of locally harvested morselized autograft in the posterior gutters. #9 placement of I factor and interbody space and infuse collagen sponge, master graft in the posterior gutters T12-L2. with Dr No EBL 200cc, KAREN 75cc + 40cc thus far Pre-op hgb 11.3--> 7.9. acute blood loss in patient with chronic anemia however also some dilutional from IVF provided. Discussed with Dr No and patient 1 00% on room air, no sob or CP reported and holding off on giving unit of blood at this time and will monitor Will check iron studies w/ AM labs/replacement if needed Dexamethasone IV per primary Pain control/bowel regimen/PT/OT/DVT prophylaxis per primary service Tramadol effective for pain this morning Asked RN to given milk of magnesium x 1 given effectiveness prior surgery 2018 but did not take but agreeable to dose this morning Labs from AM pending but no fever/chills/CP/SOB and stable on room air Patient hopeful for discahrge today but likely remaining inpatient until tomorrow (2) Hypertension: Plan: Switched from HCTZ to losartan couple of months ago, recently thought about increasing medications BP stable currently 124/70 and will continue losartan (3) Hyperlipidemia: Plan: lipid panel w/ LDL 107, HDL 47 in 2021, remains on simvastatin and gemfibrozil (4) Hypothyroidism: Plan: last TSH 1.784 on 06/15/22 Continue levothyroxine 75mcg daily (5) CKD (chronic kidney disease): Plan: Cr stable and at baseline Renal dose meds/avoid nephrotoxic agents when able (6) Anemia: Plan: chronic but with acute blood loss anemia from surgery as above holding off on transfusion currently, no CP/SOB and 100% on RA, Cr stable Monitor CBC in AM-- PENDING (7) Pre-diabetes: Plan: a1c 5.6 on pre-op labs Glucose 144 on am labs and will add BSG ac/hs add ISS if elevated to promote good wound healing BSGs acceptable and can hold off ISS currently (8) Cardiac murmur: Plan: noted on exam by Dr. Infante 06/30, appreciated 07/01 by myself ECHO 2019 with mild MR, heavily calcified AV could be accentuated by hemoglobin drop/anemia and labs from AM pending monitor as outpt Plan Thank you for allowing hospitalist service to participate in the care of Ms English. Hospitalist service will SIGN OFF Admission and Anticipated Discharge Date Admission Date: June 29, 2022 Supervising Physician Co-Signing Physician Notes PA Supervision Note: I did not personally see or examine the patient today, but I verified all [place] points of DIAZ Montana's assessment and plan with the following exceptions/additions: None Subjective Patient evaluated this morning. Doing well. Having some more incisional pain today but she is hopeful to go home. Primary pain overnight spasm to her buttocks and will order baclofen as needed. Not passing gas/moving bowels but does not feel constipated. Did not get dose of milk of mag yesterday after discussion as she didn't want a blow out but she is agreeable to a dose this morning. KAREN drain emptied this morning, breathing stable and 100% on room air. No chest pain, lightheadedness or dizziness. Labs not yet back from this morning. Review of Systems Review of Systems: All systems reviewed & are unremarkable except as noted in HPI & below Physical Exam Physical Exam: General: WN/WD elderly female sitting up in bed, NAD HEENT: head normocephalic, atraumatic, mmm, pupils equal and reactive, trachea midline without deviation Resp: CTAB, no w/c/r, on room air CV: RRR, +systolic murmur, no rub/gallop, trace pedal edema, no calf tenderness (maritza hose/SCDs in place), cap refill wnl GI:+BS, soft, nontender : cai draining clear yellow urine MSK/Neuro: dressing to lumbar spine c/d/i, appropriately tender to palpation, KAREN with trace bloody drainage NVI, pulses palpable, equal strength dorsiflexion/plantarflexion Skin: warm dry Psych: alert, oriented x3, pleasant and cooperative Results & Data Results & Data ([facility]) Vital Signs (Past 12 Hours) Vital Signs Temp Pulse Resp BP BP Pulse Ox O2 Del Method 07/01/22 07:15 Room Air 07/01/22 05:32 36.5 C 86 18 124/70 100 Room Air 06/30/22 20:50 Room Air 06/30/22 22:45 37.0 C 90 18 115/60 95 Room Air Laboratory Results 06/30/22 06/30/22 06/30/22 Range/Units 20:47 16:50 11:58 POC Glucose 169 H 217 H 179 H (70-99) mg/dl PG Care Time/CCT Total # of Minutes Spent Total Time Spent with Patient: Total time spent is greater than 50% in coordination of care (as documented) at patient's floor/unit and/or counseling patient: Coding Level of Care Code 53958 Subseq Hosp Care Lvl 2 Diagnoses Neurogenic claudication due to lumbar spinal stenosis M48.062 Hypertension I10 Hyperlipidemia E78.5 Hypothyroidism E03.9 CKD (chronic kidney disease) N18.9 Anemia D64.9 Pre-diabetes R73.03 Cardiac murmur R01.1
[2022-07-01] MEDS ORDERED: BACLOFEN 10 MG TAB PO PRN (08:13)
[2022-07-01] MEDS: CYANOCOBALAMIN (B-12) 500 MCG TABLET PO SCH (08:15)
[2022-07-01] MEDS: LOSARTAN POTASSIUM 50 MG TAB PO SCH (08:15)
[2022-07-01] MEDS: CHOLECALCIFEROL 1,000 UNITS 25 MCG TAB PO SCH (08:15)
[2022-07-01] MEDS: gemfibroziL 600 MG TAB PO SCH (08:15)
[2022-07-01] MEDS: dexAMETHasone 6 MG in SYRINGE 0 ML IV SCH (08:15)
[2022-07-01 09:07] LABS: Hematocrit (blood only) 24.4 % (34.1-44.9); Hemoglobin 8.2 g/dl (12.0-16.0); Mean Corpuscular Hemoglobin 30.3 pg (25.0-34.0); Mean Corpuscular Hgb Conc 33.6 g/dL (32.0-36.0); Mean Platelet Volume 10.4 fL (9.4-12.3); Platelet Count 221 K/uL (130-400); RDW Coefficient of Variation 14.1 % (11.5-14.5); RDW Standard Deviation 45.8 fL (36.4-46.3); Red Blood Count 2.71 M/uL (3.93-5.22)
[2022-07-01 09:28] LABS: BUN Creatinine Ratio 31.7 (10-20); Creatinine Clr Calc Pharmacy 33.3 ml/min; Est GFR (African American) 57.9 ml/min; Potassium 3.9 mmol/L (3.5-5.1)
[2022-07-01 09:46] LABS: Ferritin 204.9 ng/ml (8-388)
--- NOTE | 2022-07-01 10:09 | Discharge Summary ---
Date of Service July 01, 2022 Admission HPI Per Admitting Provider This is an 82-year-old female known to the presents with worsening back and bilateral leg pain. Failing course of nonoperative care is here for surgical invention. Principal Diagnosis Lumbar spinal stenosis with neurogenic claudication Discharge Data Allergies Allergy/AdvReac Type Severity Reaction Status Date / Time aspirin Allergy Severe DYSPNEA, Verified 06/29/22 08:06 wheezing sulfamethoxazole AdvReac Severe Hives Verified 06/29/22 08:06 [From Bactrim] trimethoprim [From Bactrim] AdvReac Severe Hives Verified 06/29/22 08:06 Consultations 06/29/22 13:27 Consult Hospitalist Routine Procedures Performed Operation Date: 06/29/22 09:35 Actual Procedures p T12-L2 Decompression and Fusion, with Application of Bone Morphogenetic Protein and IFactor Bone Graft, Interbody Fusion L1-L2, Spinal Cord Monitoring(Not Applicable) - Ian No DO s Removal Hardware Spine(Not Applicable) - Ian No DO Ordered Studies 06/29/22 [place] lumbar spine 2-3V Routine Hospital Course (1) Neurogenic claudication due to lumbar spinal stenosis: Patient with lumbar decompression fusion tolerated this well was taken to orthopedic floor postoperatively. Postop day 1 she was up and ambulating progressed appropriately through postop day #2. KAREN drain decreasing probably. Excellent strength testing. Subsequently discharged home. Discharge orders and instructions found in chart for further review. Total Time Total Time Spent Total Time Spent (In Minutes): 20 minutes Discharge Plan Discharge Items Patient Disposition: Home - Self-Care Reason For Visit: Disc Disorders with Radiculopathy, Lumbar Region Discharge Diagnosis: Lumbar spinal stenosis with radiculopathy Activity: As commented below Non-emergency contact: Primary Care Provider Call non-emergency contact if: you have any medication questions Follow-up/Referrals: Nash Malik MD [Primary Care Provider] - Diet: Regular Addtl Attending Provider Instructions: ACTIVITY RECOMMENDATIONS: SELF CARE INSTRUCTIONS AFTER THORACIC/LUMBAR FUSIONS 1. You may walk to your tolerance. It is good exercise for your legs and back. Expect some back and intermittent leg aches and pains. 2. You may perform "counter-top" level activities (make a sandwich, srinivas with a project, etc.). 3. No bending or lifting of more than 10 pounds or back twisting of any nature (roll like a log when turning in bed). 4. You may ride in a car for 20-30 minutes at a time. No driving until after your first visit with your doctor. 5. Frequent changes of position and restricting sitting to 30 minutes at a time will help limit the amount of back spasms and stiffness you may experience. 6. You may discontinue the use of ambulatory aids (cane, crutches, etc.) once your strength and confidence allow. 7. You may clinical research spec the shower and let water strike your incision when you arrive home at least once daily. Do not take a tub bath, sit in a hot tub or go into a swimming pool until after your first recheck in the office. SPECIAL CARE INSTRUCTIONS: VERY IMPORTANT TO READ AND REVIEW A. Your surgical incision has been closed with a cosmetic suture under the skin that will dissolve in about 6 weeks. In 14 days, you can use a pair of clean scissors and cut the suture that is left outside of the skin at the ends of your incision. 1. The small skin tapes can be removed 7 days after surgery if they have not fallen off by that point. 2. You may keep the wound open to air as much as possible to promote healing after post-op day number 5 unless told otherwise by your doctor. 3. If you think the wound looks like it is becoming infected (redness or worsening drainage) and/or you are experiencing fever, chill or worsening back pain and muscle spasms, contact the office so that we may evaluate you as soon as possible. B. Complications are uncommon, but please contact us if you have any signs or symptoms of: 1. wound infection (fever higher than 102.5 degrees F, redness, separation of wound, drainage, or increasing pain from the incision) 2. blood clots in legs (pain, swelling, redness and warmth in legs) 3. urinary tract infection (fever higher than 102.5 degrees F, burning upon urination or increased frequency of urination) 4. nerve problems (inability to walk on your toes or heels, numbness, loss of bowel or bladder control) 5. any other symptoms that concern you C. Please call the office at if you have any concerns or questions about your operation or recovery. D. No smoking! Smoking drastically decreases the chance of a solid fusion. E. Do not take any anti-inflammatory medications (Indocin, Advil, Motrin, Aspirin, Naprosyn, etc.) as these may inhibit the chance of a solid fusion. Tylenol is okay to take for pain. MANAGING PAIN AFTER SPINAL SURGERY 1. Narcotic medication is intended for short-term use and will be provided for surgical pain. Surgical pain usually lasts for a period of 4-6 weeks. Narcotic medication includes Percocet, Vicodin, Darvocet, Tylenol #3 or Lortab. 2. Longer-term pain is more appropriately treated with non-narcotic medication such as Tylenol ES. 3. Muscle spasm is not appropriately treated with narcotics. Muscle relaxers such as Soma, Flexeril or Skelaxin can be used along with Tylenol ES. 4. Remember that we all live with some "aches and pains". This is not unusual or uncommon after an injury or as we get older. a. Back pain is expected and may include muscle spasms for 4 to 6 weeks after surgery. The pain should gradually improve. If the pain worsens for no apparent reason, please contact the office. b. Intermittent leg pain may also be experienced and should not be concerned about unless it worsens for no apparent reason. If so, please contact the office. 5. We will provide appropriate medication within the normal guidelines of their prescribed use. We will also be very cautious and aware of potential abuse and extended duration of patients' medication needs. a. Pain medications are for your comfort and to assist with sleep and rest so that the tissue can heal. They are not provided in order to return to normal activity and should not be used through the day. To do so or worsening pain at night can result from ongoing tissue damage and development of tolerance to the prescribed medicine. 6. Please allow 2-3 days to process refills. Prescriptions will not be mailed but must be picked up at the office. FOLLOW UP VISIT: Keep your scheduled follow-up appointment. Any questions, please call the office at . Pending Studies at Discharge: No Stand-Alone Forms: My [employer], Smoking Cessation Medications and DC Order Prescriptions: New tramadol 50 mg tablet 50 mg PO Q6H PRN (Reason: pain, moderate) Qty: 30 0RF oxycodone 5 mg tablet 5 mg PO Q6H PRN (Reason: pain, severe) Qty: 30 0RF Continued gemfibrozil 600 mg tablet 600 mg PO BID Qty: 28 0RF fluticasone propionate [Flonase Allergy Relief] 50 mcg/actuation spray,suspension 1 spray INTNAS BID PRN (Reason: Congestion) Rx Instructions: administer into each nostril cholecalciferol (vitamin D3) 1,000 unit (25 mcg) tablet 2,000 units PO QAM cyanocobalamin (vitamin B-12) 1,000 mcg tablet 1,000 mcg PO QAM Label Comments: As directed diclofenac sodium 1 % gel 4 g TOP QID PRN (Reason: Pain) Rx Instructions: do not apply more than 16gm daily to any affected joint losartan 50 mg tablet 50 mg PO QAM levothyroxine 75 mcg tablet 75 mcg PO QAM simvastatin 20 mg tablet 20 mg PO PM Rx Instructions: TAKE 1 TABLET DAILY Discharge Orders: Discharge Order (Routine); Ordered 07/01/22 Ordered By: Ian No Admission Data Admit Date/Time: 06/29/22 11:48 Attending Provider: Ian No Admit Provider: Ian No Primary Care Provider: Nash Malik Other Providers: Peter Rodriguez ; Dian Infante
== END 2022-07-01 13:44 | disposition home or self-care (01) | DRG 454 ==
LOC: ASU 07:36 → 3E 11:48

== ENCOUNTER 2024-07-31 18:39 | Observation (INO) ==
[2024-07-31 19:09] LABS: Basophils # (auto) 0.04 K/uL (0.00-0.20); Basophils % (auto) 0.5 %; Hematocrit (blood only) 32.9 % (37.0-47.0); Hemoglobin 11.3 g/dl (12.0-16.0); Immature Granulocytes # (auto) 0.06 K/uL (0.01-0.20); Immature Granulocytes % (auto) 0.8 %; Lymphocytes # (auto) 1.04 K/uL (1.20-3.40); Lymphocytes % (auto) 13.3 %; Mean Corpuscular Hemoglobin 30.1 pg (25.0-34.0); Mean Corpuscular Hgb Conc 34.3 g/dL (32.0-36.0); Mean Corpuscular Volume 87.7 fL (80.0-100.0); Mean Platelet Volume 9.8 fL (9.4-12.4); Monocytes % (auto) 8.9 %; Neutrophils % (auto) 76.5 %; Platelet Count 249 K/uL (130-400); RDW Coefficient of Variation 14.3 % (11.5-14.5); RDW Standard Deviation 45.7 fL (36.4-46.3); Red Blood Count 3.75 M/uL (4.20-5.40); White Blood Count 7.84 K/ul (4.8-10.8)
--- NOTE | 2024-07-31 19:16 | Emergency Department Note ---
Impression & Plan Generalized weakness, Acute dyspnea, COVID-19, Non-ST elevation GA (NSTEMI), Elevated brain natriuretic peptide (BNP) level ED Provider Note HISTORY OF PRESENT ILLNESS: Patient is an 84-year-old female presenting with shortness of breath and generalized weakness. Patient reports she has been having a runny nose and sore throat for the last 3 days. She went to [facility] today and was diagnosed with COVID-19. She was informed about Paxlovid, but reports that the provider at [facility] recommended she call her primary doctor to discuss getting started on this. She reports she was unable to get in touch with her doctor today. Family at bedside reports that they went to check on the patient this evening and found the patient laying in bed and she was too weak to get up and out of it. Family reports that she was very short of breath and seemed to be working hard to breathe, prompting them to call 911. Patient reports some dysuria over the last 2 to 3 days. Denies any abdominal pain, nausea or vomiting. Denies any chest pain. Denies any DVT or PE history. She is not on any anticoagulation. ROS: as above PHYSICAL EXAM: Constitutional: Patient appears in no acute distress. HENT: Head: Normocephalic and atraumatic. Eyes: EOMI, PERRL Mouth/Throat: Mucous membranes moist. Neck: Trachea midline. Neck supple. Cardiovascular: RRR, No murmurs, rubs or gallops. Intact distal pulses. Pulmonary/Chest: No respiratory distress. Breath sounds clear and equal bilaterally. No wheezes or rales. Abdominal: Abdomen soft, no tenderness, rebound or guarding. Musculoskeletal: No edema, tenderness or deformity noted. Skin: Warm and dry. No rash, erythema, pallor or cyanosis Psychiatric: Appropriate mood and affect for situation. Neurological: Alert and keenly responsive. CN II-XII grossly intact, moving all extremities equally and fully. MDM: - Vitals signs showed hypertension, tachycardia and fever. - History obtained via patient and patient's family. History as above. - Chronic conditions affecting care: CKD; HLD; hypothyroidism; HTN; GERD; hyperparathyroidism - Differential diagnoses include, but are not limited to: Congestive heart failure; acute coronary syndrome; COPD/asthma exacerbation; pulmonary edema; pulmonary embolism; pneumonia; pneumothorax; viral syndrome - Order placed for continuous cardiac monitoring. At this time, monitor showed rate of 87 bpm with normal sinus rhythm, per my interpretation. - External medical records reviewed. Express care note from earlier today was reviewed. Patient tested positive for COVID-19 at that time. They did not prescribe Paxlovid but recommended that the patient touch base with her doctor about it. - EKG interpreted by myself showed normal sinus rhythm. Rate 90 bpm. QT 366. Noted to have a bifascicular block. No acute ischemic changes. - Laboratory workup interpreted by myself showed normal WBC; normal PT/INR; hyponatremia (Na 134); hyperglycemia (glucose 166); elevated troponin (34.8); elevated BNP (200) - COVID positive - CXR negative for pneumonia, per my interpretation. - Patient given 1g IV tylenol for fever - NSTEMI likely type II in nature in the setting of the patient's respiratory COVID infection. The concern about the patient's ability to care for herself and her at home, given her acute viral illness. Will admit to hospitalist service. - Discussion was had with bilingual case manager about patient's case and need for admission - Hospitalist, Dr. Bautista, consulted for admission - Patient admitted to [facility] hospitalist service for further evaluation and management. ASSESSMENT AND PLAN: Diagnosis: Generalized weakness; NSTEMI; elevated BNP; COVID-19; acute dyspnea Plan: Admit Past Med/Surg History Problem List (Updated 07/31/24 @ 20:31 by Lyn Robertson MD) Elevated brain natriuretic peptide (BNP) level (Acute) Non-ST elevation GA (NSTEMI) (Acute) COVID-19 (Acute) Acute dyspnea (Acute) Generalized weakness (Acute) Elevated serum immunoglobulin free light chains Hyperkalemia Folate deficiency Stage 3b chronic kidney disease Primary hyperparathyroidism CKD (chronic kidney disease) stage 3, GFR 30-59 ml/min Postmenopausal Hyperparathyroidism GERD (gastroesophageal reflux disease) Occasional- well controlled and stable Chronic allergic rhinitis Pain in foot Swelling of foot joint Gout flare Osteoporosis Trigger finger, left Elevated serum creatinine Hypercalcemia Shortness of breath Hypertension Anemia (Acute) Hypertension (Acute) Hypertriglyceridemia (Acute) Osteopenia (Acute) Tubular adenoma of colon (Acute) Vestibular neuronitis, unspecified ear (Acute) Vitamin D deficiency (Acute) Hyperlipidemia Hypothyroidism Neurogenic claudication due to lumbar spinal stenosis Gout Complex renal cyst Microscopic hematuria Bumps on skin Sensorineural hearing loss (SNHL) of both ears Benign positional vertigo Impacted cerumen of both ears Colitis Lumbosacral radiculopathy at L3 Chronic SI joint pain CKD (chronic kidney disease) Stable per PCP records Encounter for pre-operative examination Cardiac murmur Present since at least 2018- had ECHO at that time - heavily calcified AV and MV annulus but no stenosis Pre-diabetes Foreign body of ear, right Medical History Prediabetes Hx of rheumatic fever Asthma History of blood transfusion History of pancreatitis Gout Osteopenia Mesothelioma of peritoneum Hypertension Surgical History History of total abdominal hysterectomy and bilateral salpingo-oophorectomy History of spinal fusion History of carpal tunnel surgery History of cataract surgery Hx of tonsillectomy H/O abdominal surgery H/O colonoscopy Family History Father Cancer Mother Diverticulitis of colon Hypertension Pancreatitis Nephrolithiasis Sister Breast cancer Colon cancer Osteoarthritis Hypertension Colorectal cancer Hearing loss Brother Prostate cancer Hearing loss Son Migraine headache Denies family history of Ovarian cancer No family history of adverse response to anesthesia No family history of bleeding disorder Heart disease Myocardial infarction Asthma Social History Smoking Status: Never smoker Tobacco Type: Cigarettes Second Hand Exposure: No; Do You Dip or Chew Tobacco: No; Hx Alcohol Use: No Hx Substance Use: No Preferred Language: Vincentian Communication Ability: Effective Visual Impairment: No Limitations Hearing Ability: Normal Japanese Interpreter Required: No Beliefs That Will Affect Care: None marital status: Current Living Situation: Spouse current occupational status: retired How many Children do You have: 3 Feels Safe at Home: Yes Childhood Exposure to Second-Hand Smoke: No Diet: regular caffeine: Yes Dental Care, Regularly: Yes Physical Activity Frequency: 1-2 Times per Week Seatbelt Use: always Sunscreen Use: Yes Do you think of yourself as: straight/heterosexual Gender Identity: Female Assistive Devices: Glasses Allergies Allergies Allergy/AdvReac Type Severity Reaction Status Date / Time aspirin Allergy Severe DYSPNEA, Verified 07/31/24 10:24 wheezing sulfamethoxazole AdvReac Severe Hives Verified 07/31/24 10:24 [From Bactrim] trimethoprim [From Bactrim] AdvReac Severe Hives Verified 07/31/24 10:24 Home Meds Home Medications Medication Instructions Recorded Confirmed cholecalciferol (vitamin D3) 25 2,000 units PO QAM 06/21/19 07/31/24 mcg (1,000 unit) tablet cyanocobalamin (vitamin B-12) 1,000 mcg PO QAM 06/21/19 07/31/24 1,000 mcg tablet diclofenac sodium 1 % topical gel 4 g topical QID PRN Pain 02/27/22 07/31/24 Previous Rx's Medication Instructions Recorded amlodipine 10 mg-olmesartan 40 mg 1 tab PO DAILY #90 tabs 08/03/23 tablet fluticasone propionate 50 1 spray intranasal BID PRN 08/16/23 mcg/actuation nasal Congestion #1 unit spray,suspension (Flonase Allergy Relief) gemfibrozil 600 mg tablet 600 mg PO BID #180 tabs 08/30/23 simvastatin 40 mg tablet 40 mg PO QPM #90 tabs 09/24/23 levothyroxine 75 mcg tablet 75 mcg PO QAM #90 tabs 12/27/23 hydrocortisone 2.5 % topical cream 1 applic MT DAILY PRN hemorrhoids 05/23/24 with perineal applicator #30 grams (Anusol-HC) Results & Data (ED) Vital Signs Vital Signs - 24 hr 07/31/24 18:33 07/31/24 18:53 07/31/24 18:54 Temperature 39.2 C H Temperature Source Oral Pulse Rate 102 H 98 H 97 H Pulse Rate from SpO2 Sensor 97 H Respiratory Rate 24 23 Blood Pressure 173/92 H Blood Pressure Mean 119 Pulse Oximetry 94 94 Oxygen Delivery Method Room Air Sepsis Recent Fever Within 48 Hours Yes Sepsis New/Unexplained Change in Mental Status No Sepsis Action Taken by Nursing Physician Notified Laboratory Data 07/31/24 18:54 07/31/24 18:54 Lab Results 07/31/24 07/31/24 Range/Units 18:51 18:54 WBC 7.84 (4.8-10.8) K/ul RBC 3.75 L (4.20-5.40) M/uL Hgb 11.3 L (12.0-16.0) g/dl Hct 32.9 L (37.0-47.0) % MCV 87.7 (80.0-100.0) fL MCH 30.1 (25.0-34.0) pg MCHC 34.3 (32.0-36.0) g/dL RDW Std Deviation 45.7 (36.4-46.3) fL RDW Coeff of [place] 14.3 (11.5-14.5) % Plt Count 249 (130-400) K/uL MPV 9.8 (9.4-12.4) fL Immature Gran % (Auto) 0.8 % Neut % (Auto) 76.5 % Lymph % (Auto) 13.3 % [place] % (Auto) 8.9 % Eos % (Auto) 0.0 % Baso % (Auto) 0.5 % Neut # (Auto) 6.00 (1.40-6.50) K/uL Lymph # (Auto) 1.04 L (1.20-3.40) K/uL [place] # (Auto) 0.70 H (0.11-0.59) K/uL Eos # (Auto) 0.00 (0.00-0.50) K/uL Baso # (Auto) 0.04 (0.00-0.20) K/uL Immature Gran # (Auto) 0.06 (0.01-0.20) K/uL PT 11.3 (9.0-12.0) Seconds INR 1.0 (0.9-1.1) Sodium 134 L (136-145) mmol/L Potassium 3.6 (3.5-5.1) mmol/L Chloride 104 (98-107) mmol/L Carbon Dioxide 20 L (21-32) mmol/L Anion Gap 10 (3-11) BUN 24 H (6-23) mg/dl Creatinine 1.11 (0.6-1.2) mg/dl Est Cr Clr Drug Dosing 30.0 ml/min Est GFR ( Amer) 52.8 ml/min Est GFR (Non-Af Amer) 45.6 ml/min BUN/Creatinine Ratio 21.6 H (10-20) Glucose 166 H (70-99(Fasting)) mg/dl Calcium 9.8 (8.6-10.3) mg/dl Magnesium 1.7 (1.7-2.4) mg/dl Total Bilirubin 0.4 (0.2-1.0) mg/dl AST 17 (13-39) U/L ALT 10 (7-52) U/L Alkaline Phosphatase 105 H (34-104) U/L Troponin I High Sens 34.8 H (0-14) pg/ml B-Natriuretic Peptide 200 H (0-100) pg/ml Total Protein 8.0 (6.0-8.3) gm/dl Albumin 4.6 (3.4-5.0) gm/dl Globulin 3.4 (2.5-4.0) gm/dl Albumin/Globulin Ratio 1.4 (0.9-2) SARS-CoV-2 (PCR) POSITIVE A (Negative) Influenza Type A (PCR) Negative (Neg) Influenza Type B (PCR) Negative (Neg) RSV (RT-PCR) Negative (Neg) Administered Medications Discontinued Medications Acetaminophen (Ofirmev) 1,000 mg in 100 mls @ 400 mls/hr IV NOW STA Stop: 07/31/24 19:41 Last Infusion: 07/31/24 19:55 Dose: Infused Documented By: Admin: 07/31/24 19:36 Dose: 400 mls/hr Documented By: SNS Discharge Plan Visit Data Chief Complaint: Illness ED Provider: Lyn Robertson Discharge Problem: Generalized weakness, Acute dyspnea, COVID-19, Non-ST elevation GA (NSTEMI), Elevated brain natriuretic peptide (BNP) level Forms Stand Alone Forms: My [facility] Prescriptions Prescriptions: No Action amlodipine-olmesartan 10-40 mg tablet 1 tab PO DAILY Qty: 90 3RF fluticasone propionate [Flonase Allergy Relief] 50 mcg/actuation spray,suspension 1 spray INTNAS BID PRN (Reason: Congestion) Qty: 1 4RF Rx Instructions: administer into each nostril gemfibrozil 600 mg tablet 600 mg PO BID Qty: 180 3RF simvastatin 40 mg tablet 40 mg PO QPM Qty: 90 3RF levothyroxine 75 mcg tablet 75 mcg PO QAM Qty: 90 3RF cholecalciferol (vitamin D3) 1,000 unit (25 mcg) tablet 2,000 units PO QAM cyanocobalamin (vitamin B-12) 1,000 mcg tablet 1,000 mcg PO QAM Patient Comments: As directed diclofenac sodium 1 % gel 4 g TOP QID PRN (Reason: Pain) Rx Instructions: do not apply more than 16gm daily to any affected joint hydrocortisone [Anusol-HC] 2.5 % cream with perineal applicator 1 applic MT DAILY PRN (Reason: hemorrhoids) Qty: 30 3RF Referrals Referrals: ProNash MD [Primary Care Provider] -
[2024-07-31 19:24] LABS: Albumin Globulin Ratio 1.4 (0.9-2); Albumin Level 4.6 gm/dl (3.4-5.0); BUN Creatinine Ratio 21.6 (10-20); Bilirubin,Total 0.4 mg/dl (0.2-1.0); Calcium 9.8 mg/dl (8.6-10.3); Est GFR (African American) 52.8 ml/min; Est GFR (Non-African American) 45.6 ml/min; Globulin 3.4 gm/dl (2.5-4.0); Magnesium 1.7 mg/dl (1.7-2.4); Potassium 3.6 mmol/L (3.5-5.1)
[2024-07-31 19:30] LABS: Troponin I High Sensitivity 34.8 pg/ml (0-14)
[2024-07-31 19:33] LABS: Prothrombin Time 11.3 Seconds (9.0-12.0)
[2024-07-31] MEDS: ACETAMINOPHEN 1,000 MG/100 ML VIAL IV STA (19:36)
[2024-07-31 19:49] LABS: Influenza A virus by PCR Negative (Neg); Influenza B virus by PCR Negative (Neg); RSV by PCR Negative (Neg); SARS CoV2 RNA(COVID-19) Ceph POSITIVE (Negative)
--- NOTE | 2024-07-31 20:46 | History & Physical Report ---
Date of Service July 31, 2024 Assessment & Plan (1) COVID-19: Plan: Generalized fatigue, sore throat, and fevers that began on Sunday 07/29 COVID (+) on arrival Isolation precautions No leukocytosis; non-hypoxic on room air; however, febrile at 39.2 C Acetaminophen as needed for fever/pain Supportive care Will defer remdesivir and dexamethasone at this time as patient is non-hypoxic A.m. CBC, BMP (2) Elevated troponin: Plan: Troponin 34-->43 on arrival; trend to peak Clinically, patient denies chest pain, SOB, or pleuritic CP Continuous telemetry monitoring If continues to up-trend, consider echocardiogram to rule out pericarditis (3) Anemia: Plan: Chronic; Hgb 11.3 on arrival No signs of active bleeding on clinical exam Recheck a.m. CBC (4) Hx of rheumatic fever: Plan: As a child; no known heart valve issues (5) Hypertension: Plan: Continue home medications or formulary equivalent (6) Primary hyperparathyroidism: (7) Stage 3b chronic kidney disease: Plan Disposition: Obs - Admit to [facility] telemetry Full code Heart healthy diet VTE PPx: Heparin 5000u SQ q12h History of Present Illness Chief Complaint: SOB/dyspnea, generalized fatigue Primary Care Provider: Nash Malik MD Sirena is a pleasant 84-year-old female with PMH of primary hyperparathyroidism, GERD, chronic allergic rhinitis, osteoporosis, HTN, gout, benign positional vertigo, lumbosacral radiculopathy, NSTEMI, and stage III CKD. She presented on 07/31 for generalized weakness after recent diagnosis of COVID. Patient's symptoms started on Sunday 07/29. She reports generalized weakness, sore thr oat, and fevers at home up to 101 F. Patient has been taking Tylenol at home, and using lozenges and Vicks VapoRub, as needed for her symptoms. She went to an urgent care today on 07/31 and was diagnosed with COVID, and was told to speak with her PCP about Paxlovid; there was some concern about her being placed on Paxlovid as she takes a statin. No prior history of COVID infections. She reports she is up-to-date on her immunizations and booster. Patient took her regular morning medications today; no recent change in medications. She is unsure where she picked up COVID as she does not have any sick contacts. No supplemental oxygen at baseline or CPAP at night. Patient denies smoking, tobacco use, or recent alcohol use. Patient does endorse generalized weakness and feeling like she could not get out of bed yesterday, but denies ambulatory dysfunction. Patient is hypertensive at 173/92 and febrile at 39.2 C at time of admission; SpO2 94% on RA. ED course: Acetaminophen 1000 mg IV ROS: Patient endorses fever, chills, night-sweats, dizziness, lightheadedness, generalized fatigue, and sore throat. Patient denies POSADAS, cough, chest pain, chest palpitations, SOB, pleuritic CP, ab dominal pain, N/V/D, and changes in urinary/bowel habits. Allergies Allergy/AdvReac Type Severity Reaction Status Date / Time aspirin Allergy Severe DYSPNEA, Verified 07/31/24 10:24 wheezing sulfamethoxazole AdvReac Severe Hives Verified 07/31/24 10:24 [From Bactrim] trimethoprim [From Bactrim] AdvReac Severe Hives Verified 07/31/24 10:24 Home Medications Medication Instructions Recorded Confirmed Type cholecalciferol (vitamin D3) 25 2,000 units PO QAM 06/21/19 07/31/24 History mcg (1,000 unit) tablet cyanocobalamin (vitamin B-12) 1,000 mcg PO QAM 06/21/19 07/31/24 History 1,000 mcg tablet diclofenac sodium 1 % topical gel 4 g topical QID PRN Pain 02/27/22 07/31/24 History amlodipine 10 mg-olmesartan 40 mg 1 tab PO DAILY #90 tabs 08/03/23 07/31/24 Rx tablet fluticasone propionate 50 1 spray intranasal BID PRN 08/16/23 07/31/24 Rx mcg/actuation nasal Congestion #1 unit spray,suspension (Flonase Allergy Relief) gemfibrozil 600 mg tablet 600 mg PO BID #180 tabs 08/30/23 07/31/24 Rx simvastatin 40 mg tablet 40 mg PO QPM #90 tabs 09/24/23 07/31/24 Rx levothyroxine 75 mcg tablet 75 mcg PO QAM #90 tabs 12/27/23 07/31/24 Rx hydrocortisone 2.5 % topical cream 1 applic PA DAILY PRN hemorrhoids 05/23/24 07/31/24 Rx with perineal applicator #30 grams (Anusol-HC) Past Med/Surg History Problem List (Updated 07/31/24 @ 22:04 by Titus Begum PA-C) Hx of rheumatic fever As child No heart valve issues known Elevated troponin Elevated brain natriuretic peptide (BNP) level (Acute) Non-ST elevation NM (NSTEMI) (Acute) COVID-19 (Acute) Acute dyspnea (Acute) Generalized weakness (Acute) Elevated serum immunoglobulin free light chains Hyperkalemia Folate deficiency Stage 3b chronic kidney disease Primary hyperparathyroidism CKD (chronic kidney disease) stage 3, GFR 30-59 ml/min Postmenopausal Hyperparathyroidism GERD (gastroesophageal reflux disease) Occasional- well controlled and stable Chronic allergic rhinitis Pain in foot Swelling of foot joint Gout flare Osteoporosis Trigger finger, left Elevated serum creatinine Hypercalcemia Shortness of breath Hypertension Anemia (Acute) Hypertension (Acute) Hypertriglyceridemia (Acute) Osteopenia (Acute) Tubular adenoma of colon (Acute) Vestibular neuronitis, unspecified ear (Acute) Vitamin D deficiency (Acute) Hyperlipidemia Hypothyroidism Neurogenic claudication due to lumbar spinal stenosis Gout Complex renal cyst Microscopic hematuria Bumps on skin Sensorineural hearing loss (SNHL) of both ears Benign positional vertigo Impacted cerumen of both ears Colitis Lumbosacral radiculopathy at L3 Chronic SI joint pain CKD (chronic kidney disease) Stable per PCP records Encounter for pre-operative examination Cardiac murmur Present since at least 2018- had ECHO at that time - heavily calcified AV and MV annulus but no stenosis Pre-diabetes Foreign body of ear, right Medical History Prediabetes Hx of rheumatic fever Asthma History of blood transfusion History of pancreatitis Gout Osteopenia Mesothelioma of peritoneum Hypertension Surgical History History of total abdominal hysterectomy and bilateral salpingo-oophorectomy History of spinal fusion History of carpal tunnel surgery History of cataract surgery Hx of tonsillectomy H/O abdominal surgery H/O colonoscopy Family History Father Cancer Mother Diverticulitis of colon Hypertension Pancreatitis Nephrolithiasis Sister Breast cancer Colon cancer Osteoarthritis Hypertension Colorectal cancer Hearing loss Brother Prostate cancer Hearing loss Son Migraine headache Denies family history of Ovarian cancer No family history of adverse response to anesthesia No family history of bleeding disorder Heart disease Myocardial infarction Asthma Social History Smoking Status: Never smoker Tobacco Type: Cigarettes Second Hand Exposure: No; Do You Dip or Chew Tobacco: No; Hx Alcohol Use: Yes Hx Substance Use: No Preferred Language: Bulgarian Communication Ability: Effective Visual Impairment: No Limitations Hearing Ability: Normal Cash Management Associate Required: No Beliefs That Will Affect Care: None marital status: Current Living Situation: Spouse current occupational status: retired How many Children do You have: 3 Other Information That Helps Us Care for You: No Feels Safe at Home: Yes Safety Concerns: Feels Safe At This Time Childhood Exposure to Second-Hand Smoke: No Diet: regular caffeine: Yes Dental Care, Regularly: Yes Physical Activity Frequency: 1-2 Times per Week Seatbelt Use: always Sunscreen Use: Yes Do you think of yourself as: straight/heterosexual Gender Identity: Female Assistive Devices: None Review of Systems Review of Systems: See HPI above Physical Exam Physical Exam: General: no acute distress; pleasant affect; non-toxic appearing; well- nourished; cooperative; SpO2 96% on RA HEENT: normocephalic, atraumatic; no scleral icterus; PERRLA w/ EOMs intact; vision and hearing grossly intact Neck: supple; no lymphadenopathy; trachea midline Skin: warm, dry without signs of tenting; no cyanosis; no rashes, bruising, lesions, or erythema noted CV: chest wall NTP; RRR; S1/S2 normal; 4/6 systolic ejection murmur auscultated at the second ICS MCL; pulses intact and symmetric at radial, DP, and PT Lungs: no acute respiratory distress; symmetrical chest wall expansion; clear breath sounds across all lung anaya w/o adventitious sounds; no wheezing ABD: Soft, NTP; BS present; no rebound/guarding; no distention MSK: no tics or fasciculations; no edema noted in the LEs b/l, nonerythematous Neuro: A&Ox3; normal mood and affect; fluent speech; no focal deficits; sensation grossly intact in the LEs b/l Results & Data Results & Data Vital Signs (Past 12 Hours) Vital Signs Temp Pulse Resp BP Pulse Ox O2 Del Method 07/31/24 18:54 97 H 23 173/92 H 94 07/31/24 18:53 98 H 07/31/24 18:33 39.2 C H 102 H 24 94 Room Air Laboratory Results Abnormal lab results 07/31/24 07/31/24 Range/Units 18:51 18:54 RBC 3.75 L (4.20-5.40) M/uL Hgb 11.3 L (12.0-16.0) g/dl Hct 32.9 L (37.0-47.0) % Lymph # (Auto) 1.04 L (1.20-3.40) K/uL Bucks # (Auto) 0.70 H (0.11-0.59) K/uL Sodium 134 L (136-145) mmol/L Carbon Dioxide 20 L (21-32) mmol/L BUN 24 H (6-23) mg/dl BUN/Creatinine Ratio 21.6 H (10-20) Glucose 166 H (70-99(Fasting)) mg/dl Alkaline Phosphatase 105 H (34-104) U/L Troponin I High Sens 34.8 H (0-14) pg/ml B-Natriuretic Peptide 200 H (0-100) pg/ml SARS-CoV-2 (PCR) POSITIVE A (Negative) ECG Additional Comments: ECG revealed NSR at 98 bpm; QTc 467; RBBB and left anterior fascicular block (not new when compared to prior EKGs) Code Status & VTE Plan Code Status Full code VTE Prophylaxis Plan VTE Prophylaxis will be ordered: Yes Supervising Physician Co-Signing Physician Notes Attending addendum: I have physically seen this patient, have supervised the medical residents activities, and agree with the H&P unless as otherwise noted. Assessment and Plan: COVID-19 infection- Symptoms of generalized fatigue, sore throat and fevers since 07/29 COVID-19 precautions Symptoms are improving somewhat per patient Temperature 39.2 recorded in the emergency department Normal-appearing chest x-ray Elevated troponin/hypertension- Troponin initially 34.8, with follow-up 43 Echo in the a.m. with repeat labs, follow-up for possible pericarditis Continue amlodipine, olmesartan Hyperlipidemia- Continue simvastatin and gemfibrozil, combination well-tolerated PG Care Time/CCT Total # of Minutes Spent Total Time Spent with Patient: Total time spent is greater than 50% in coordination of care (as documented) at patient's floor/unit and/or counseling patient: Coding [place] [address] INT INP/OBS CARE 2/55MIN Patient Type Established Medical Decision Making Moderate Complexity Diagnoses COVID-19 U07.1 Elevated troponin R79.89 Anemia D64.9 Anemia type: unspecified type Hx of rheumatic fever Z86.79 Primary hypertension I10 Hypertension type: primary hypertension Primary hyperparathyroidism E21.0 Stage 3b chronic kidney disease N18.32 (3) Anemia Anemia type: unspecified type Qualified Code(s): D64.9 - Anemia, unspecified (5) Hypertension Hypertension type: primary hypertension Qualified Code(s): I10 - Essential (primary) hypertension
[2024-07-31 21:02] LABS: Base Excess VBG -5.8 mEq/L; HCO3 VBG 19 mmol/L; PCO2 VBG 32 mmHg (38-50); PO2 VBG 58 mmHg; pH VBG 7.37 (7.36-7.41)
[2024-08-01] MEDS: ACETAMINOPHEN 325 MG TAB PO PRN (01:40)
[2024-08-01] MEDS: gemfibroziL 600 MG TAB PO SCH (01:41)
[2024-08-01] MEDS: LEVOTHYROXINE SODIUM 75 MCG TABLET PO SCH (06:31)
[2024-08-01 07:00] LABS: Basophils # (auto) 0.04 K/uL (0.00-0.20); Basophils % (auto) 0.5 %; Eosinophils # (auto) 0.01 K/uL (0.00-0.50); Eosinophils % (auto) 0.1 %; Hematocrit (blood only) 31.2 % (37.0-47.0); Hemoglobin 10.6 g/dl (12.0-16.0); Immature Granulocytes # (auto) 0.05 K/uL (0.01-0.20); Immature Granulocytes % (auto) 0.6 %; Lymphocytes # (auto) 1.63 K/uL (1.20-3.40); Mean Corpuscular Volume 88.4 fL (80.0-100.0); Monocytes # (auto) 0.88 K/uL (0.11-0.59); Monocytes % (auto) 10.3 %; Neutrophils # (auto) 5.97 K/uL (1.40-6.50); Neutrophils % (auto) 69.5 %; Platelet Count 267 K/uL (130-400); RDW Coefficient of Variation 14.5 % (11.5-14.5); Red Blood Count 3.53 M/uL (4.20-5.40); White Blood Count 8.58 K/ul (4.8-10.8)
--- NOTE | 2024-08-01 07:03 | XRay Report ---
XR chest 1V portable CLINICAL HISTORY: Dyspnea. COMPARISON STUDY: Chest CT September 04, 2015. Chest radiograph June 15, 2022. FINDINGS: Mild elevation the right hemidiaphragm is unchanged. Lungs are clear. There is no pneumotho rax or pleural effusion. Cardiac size is stable. Mediastinal contours are normal. There is no evidenc e for pulmonary edema. Spinal decompression and fusion is partially imaged. IMPRESSION: No acute cardiopulmonary findings. No significant change in appearance of the chest. ACT 112: Negative or not required by law. Electronically signed by: Aaron Navas M.D. 08/01/2024 7:01 AM
--- NOTE | 2024-08-01 07:09 | Hospitalist Progress Note ---
Date of Service August 01, 2024 Assessment & Plan (1) COVID-19: Plan: Generalized fatigue, sore throat, and fevers that began on Sunday 07/29 COVID (+) on arrival Isolation precautions No leukocytosis; non-hypoxic on room air; however, febrile at 39.2 C Acetaminophen as needed for fever/pain Supportive care (2) Elevated troponin: Plan: Troponin 34-->43 on arrival; trend to peak Clinically, patient denies chest pain, SOB, or pleuritic CP demand ischemia (3) Anemia: Plan: Chronic; Hgb 11.3 on arrival No signs of active bleeding on clinical exam Iron and B12 replete in june 14 (4) Hypertension: Plan: Continue amlodipine and losartan Plan primary hyperparathyroidism, Ca normal on arriva CKD 3 appropriately dose medications Full code VTE PPx: Heparin 5000u SQ q12h Admission and Anticipated Discharge Date Admission Date: July 31, 2024 Results & Data Results & Data Vital Signs (Past 12 Hours) Vital Signs Temp Pulse Pulse Pulse Resp BP BP 08/01/24 03:59 100.0 F H 84 18 121/65 08/01/24 00:04 82 07/31/24 23:55 07/31/24 23:55 99.1 F 79 19 155/90 H 07/31/24 23:25 07/31/24 23:00 83 20 108/63 07/31/24 22:46 85 07/31/24 22:23 82 18 07/31/24 21:06 85 18 136/77 Pulse Ox O2 Del Method 08/01/24 03:59 95 Room Air 08/01/24 00:04 07/31/24 23:55 Room Air 07/31/24 23:55 97 Room Air 07/31/24 23:25 Room Air 07/31/24 23:00 96 07/31/24 22:46 07/31/24 22:23 93 Room Air 07/31/24 21:06 95 Room Air PG Care Time/CCT Total # of Minutes Spent Total Time Spent with Patient: Total time spent is greater than 50% in coordination of care (as documented) at patient's floor/unit and/or counseling patient: Coding Diagnoses COVID-19 U07.1 Elevated troponin R79.89 Anemia D64.9 Anemia type: unspecified type Primary hypertension I10 Hypertension type: primary hypertension (3) Anemia Anemia type: unspecified type Qualified Code(s): D64.9 - Anemia, unspecified (4) Hypertension Hypertension type: primary hypertension Qualified Code(s): I10 - Essential (primary) hypertension
[2024-08-01 07:15] LABS: BUN Creatinine Ratio 22.6 (10-20); Calcium 9.5 mg/dl (8.6-10.3); Creatinine Clr Calc Pharmacy 49.2 ml/min; Est GFR (African American) 55.8 ml/min; Est GFR (Non-African American) 48.2 ml/min; Potassium 3.5 mmol/L (3.5-5.1)
[2024-08-01 07:22] LABS: Troponin I High Sensitivity 40.5 pg/ml (0-14)
[2024-08-01 08:05] VITALS: BP 143/79; RESP 20; TEMP 98.6; O2SAT 94
[2024-08-01] MEDS: LOSARTAN POTASSIUM 50 MG TAB PO SCH (08:50)
[2024-08-01] MEDS: amLODIPine BESYLATE 5 MG TAB PO SCH (08:51)
[2024-08-01] MEDS: HEPARIN SOD 5,000 UNIT/0.5 ML VIAL SQ SCH (08:55)
[2024-08-01 09:36] LABS: Appearance Urine Clear (Clear); Bacteria Urine Automated None Seen (None Seen); Bilirubin Urine Negative (Negative); Blood Urine 1+ (Negative); Cast Urine Automated 0-2 /lpf (0-2); Color Urine Yellow; Epithelial Cell Urine Auto 0-2 /hpf (0-2); Glucose Urine UA Negative (Negative); Ketones Urine Negative (Negative); Leukocyte Esterase Urine Negative (Negative); Nitrite Urine Negative (Negative); Protein Urine 3+ (Negative); RBC Urine Automated 0-2 /hpf (0-2); Specific Gravity Urine 1.014 (1.000-1.030); Urobilinogen Urine Negative (Negative); WBC Urine Automated 0-5 /hpf (0-5); pH Urine 5.5 (4.5-7.5)
[2024-08-01 11:01] VITALS: PULSE 79
--- NOTE | 2024-08-01 11:45 | Electrocardiogram Report ---
Test Reason : Blood Pressure : */* mmHG Vent. Rate : 98 BPM Atrial Rate : 98 BPM P-R Int : 168 ms QRS Dur : 132 ms QT Int : 366 ms P-R-T Axes : -1 -74 31 degrees QTcB Int : 467 ms Normal sinus rhythm Right bundle branch block Left anterior fascicular block Bifascicular block Abnormal ECG When compared with ECG of 15-Jun-2022 14:18, Nonspecific T wave abnormality now evident in Anterior leads Confirmed by Nash Taylor ([id number]) on 08/01/2024 11:45:43 AM Referred By: Confirmed By: Nash Taylor
--- NOTE | 2024-08-01 15:23 | Discharge Summary ---
Discharge Summary Date of Service August 01, 2024 Principal Dx & Hospital Course #1 = Principal Diagnosis (1) COVID-19: COVID (+) on arrival sore throat, and fevers that began on Sunday 07/29 No leukocytosis; non-hypoxic on room air; however, still with low grade temps, wants to go home offered paxlovid pt did not want Acetaminophen as needed for fever/pain Supportive care (2) Elevated troponin: Troponin 34-->43 -> 40 Clinically, patient denies chest pain, SOB, or pleuritic CP demand ischemia, could also be secondary to covid also (3) Anemia: Chronic; Hgb 11.3 on arrival No signs of active bleeding on clinical exam Iron and B12 replete in june 14 (4) Hypertension: Continue amlodipine and losartan Plan primary hyperparathyroidism, Ca normal on arriva CKD 3 appropriately dose medications Full code Notes For Next Care Provider Reminder for follow-up of aortic sclerosis with loud murmur Admission HPI Per Admitting Provider Sirena is a pleasant 84-year-old female with PMH of primary hyperparathyroidism, GERD, chronic allergic rhinitis, osteoporosis, HTN, gout, benign positional vertigo, lumbosacral radiculopathy, NSTEMI, and stage III CKD. She presented on 07/31 for generalized weakness after recent diagnosis of COVID. Patient's symptoms started on Sunday 07/29. She reports generalized weakness, sore throat, and fevers at home up to 101 F. Patient has been taking Tylenol at home, and using lozenges and Vicks VapoRub, as needed for her symptoms. She went to an urgent care today on 07/31 and was diagnosed with COVID, and was told to speak with her PCP about Paxlovid; there was some concern about her being placed on Paxlovid as she takes a statin. No prior history of COVID infections. She reports she is up-to-date on her immunizations and booster. Patient took her regular morning medications today; no recent change in medications. She is unsure where she picked up COVID as she does not have any sick contacts. No supplemental oxygen at baseline or CPAP at night. Patient denies smoking, tobacco use, or recent alcohol use. Patient does endorse generalized weakness and feeling like she could not get out of bed yesterday, but denies ambulatory dysfunction. Patient is hypertensive at 173/92 and febrile at 39.2 C at time of admission; SpO2 94% on RA. ED course: Acetaminophen 1000 mg IV ROS: Patient endorses fever, chills, night-sweats, dizziness, lightheadedness, generalized fatigue, and sore throat. Patient denies POSADAS, cough, chest pain, chest palpitations, SOB, pleuritic CP, abdominal pain, N/V/D, and changes in urinary/bowel habits. Discharge Exam pt is without distress speaks in full sentences cardiac with systolic murmur /, encouraged follow up Discharge Plan Discharge Items Patient Disposition: Home - Self-Care Reason For Visit: COVID +, ELEVATED TROPONIN Discharge Diagnosis: covid test + elevated troponin from covid not a heart attack Activity: Resume your previous activity Non-emergency contact: Primary Care Provider Call non-emergency contact if: your symptoms worsen Follow-up/Referrals: Nash Malik MD [Primary Care Provider] - 08/11/24 11:00 am Diet: Regular Addtl Attending Provider Instructions: You have been diagnosed with covid infection, it would be recommended that you quarantine yourself for 5 days from your first test or first symptoms, and if at the 5th day you have no symptoms the you can come off quarantine but use common sense precautions. Quarantine means attempting to stay away from people who have not had an active covid infection in the past, and if you have to be around others to wear a mask even if you are indoors, do not share a room to sleep in with others until you are out of quarantine. If you still have symptoms at the 5th day, continue to quarantine until you are symptom free for 48 hours Addtl Yard Motor Operator Provider Instructions: Please have good hydration and nutrition while you are ill. Consider getting NICE cough drops or cough drops with lidocaine and to help your sore throat Pending Studies at Discharge: No Stand-Alone Forms: My Suda, Smoking Cessation Medications and DC Order Prescriptions: Continued amlodipine-olmesartan 10-40 mg tablet 1 tab PO DAILY Qty: 90 3RF fluticasone propionate [Flonase Allergy Relief] 50 mcg/actuation spray,suspension 1 spray INTNAS BID PRN (Reason: Congestion) Qty: 1 4RF Rx Instructions: administer into each nostril gemfibrozil 600 mg tablet 600 mg PO BID Qty: 180 3RF simvastatin 40 mg tablet 40 mg PO QPM Qty: 90 3RF levothyroxine 75 mcg tablet 75 mcg PO QAM Qty: 90 3RF cholecalciferol (vitamin D3) 1,000 unit (25 mcg) tablet 2,000 units PO QAM cyanocobalamin (vitamin B-12) 1,000 mcg tablet 1,000 mcg PO QAM Patient Comments: As directed diclofenac sodium 1 % gel 4 g TOP QID PRN (Reason: Pain) Rx Instructions: do not apply more than 16gm daily to any affected joint hydrocortisone [Anusol-HC] 2.5 % cream with perineal applicator 1 applic [place] DAILY PRN (Reason: hemorrhoids) Qty: 30 3RF Discharge Orders: Discharge Order (Routine); Ordered 08/01/24 Ordered By: Peter Byrne/Other Patient Handouts: COVID-19 Home Care, COVID19 Home Disinfect, Dehydration Admission Data Admit Date/Time: 07/31/24 22:03 Attending Provider: Peter Rodriguez Admit Provider: Chandan Bautista Primary Care Provider: Nash Malik Other Providers: Chandan Bautista Other Interventions: Discharge Summary Assessment (RN) Last Done: 08/01/24 11:00 Hospital Stay Data Consultations 07/31/24 20:25 ED Decision to Admit Stat Pending Results Patient Have Any Pending Studies at Discharge: No Discharge Instructions Given to Patient (Per Discharging Provider) You have been diagnosed with covid infection, it would be recommended that you quarantine yourself for 5 days from your first test or first symptoms, and if at the 5th day you have no symptoms the you can come off quarantine but use common sense precautions. Quarantine means attempting to stay away from people who have not had an active covid infection in the past, and if you have to be around others to wear a mask even if you are indoors, do not share a room to sleep in with others until you are out of quarantine. If you still have symptoms at the 5th day, continue to quarantine until you are symptom free for 48 hours Total Time Total Time Spent Total Time Spent (In Minutes): It required greater than 30 minutes to prepare this patient for discharge. Coding Level of Care Code 42646 INP/OBS DISCH >30 MIN Diagnoses COVID-19 U07.1 Elevated troponin R79.89 Anemia D64.9 Anemia type: unspecified type Primary hypertension I10 Hypertension type: primary hypertension
[2024-08-01] MEDS ORDERED: SIMVASTATIN 40 MG TAB PO SCH (21:00)
== END 2024-08-01 11:37 | disposition home or self-care (01) ==
LOC: 2N 18:39 → ED 18:39 → SUATTDRO 22:03 → 2N 23:25